=== PATIENT | male | born 1995 | race Caucasian/White ===

== ENCOUNTER 2023-01-15 01:47 | Emergency (ER) | payer MEDICAID, SELFPAY ==
[2023-01-15 01:48] VITALS: BP 147/87; PULSE 75; RESP 18; TEMP 36.7; O2SAT 99; BMI 21.7
--- NOTE | 2023-01-15 01:57 | CT_ITS ---
PROCEDURE INFORMATION: Exam: CT Abdomen And Pelvis With Contrast Exam date and time: 01/15/2023 2:17 AM Age: 27 years old Clinical indication: Abdominal pain; Patient HX: Patient stated right sided abd pain that started approx. 2 hours ago; Additional info: Rlq pain TECHNIQUE: Imaging protocol: Computed tomography of the abdomen and pelvis with contrast. Radiation optimization: All CT scans at this facility use at least one of these dose optimization techniques: automated exposure control; mA and/or kV adjustment per patient size (includes targeted exams where dose is matched to clinical indication); or iterative reconstruction. Contrast material: ISOVUE; Contrast volume: 75 ml; Contrast route: IV; REPORTING DATA: Count of CT and Cardiac NM exams in prior 12 months: This patient has received 0 known CTs and 0 known cardiac nuclear medicine studies in the 12 months prior to the current study. COMPARISON: No relevant prior studies available. FINDINGS: Lungs: There are left lower lobe pulmonary nodules measuring up to 3 mm. No follow-up imaging is warranted for a patient of this age. Liver: Normal. No mass. Gallbladder and bile ducts: Normal. No calcified stones. No ductal dilation. Pancreas: Normal. No ductal dilation. Spleen: Normal. No splenomegaly. Adrenal glands: Normal. No mass. Kidneys and ureters: Right periureteral edema. There is no obstructing ureteral calculus. Stomach and bowel: Unremarkable. No obstruction. No mucosal thickening. Appendix: Unremarkable appendix. Intraperitoneal space: Unremarkable. No free air. No significant fluid collection. Vasculature: Unremarkable. No abdominal aortic aneurysm. Lymph nodes: Unremarkable. No enlarged lymph nodes. Urinary bladder: Limited evaluation of the urinary bladder due to low urine volume. Reproductive: Unremarkable as visualized. Bones/joints: Unremarkable. No acute fracture. Soft tissues: Unremarkable. Other findings: Stigmata of old granulomatous disease. IMPRESSION: 1. Right periureteral edema. There is no obstructing ureteral calculus. This could be due to a recently passed ureteral calculus or ascending urinary tract infection. 2. Limited evaluation of the urinary bladder due to low urine volume. Please exclude infection clinically.
[2023-01-15 02:13] LABS: Basophils # 0.1 K/mm3 (0-0.2); Basophils % 0.6 % (0.1-2.0); Eosinophils # 0.2 K/mm3 (0.0-0.4); Eosinophils % 1.4 % (0.1-12.0); Hematocrit 44.6 % (42.0-52.0); Hemoglobin 14.8 g/dL (14.1-18.0); Lymphocytes # 2.8 K/mm3 (0.7-4.5); Lymphocytes % 24.6 % (10-50); Mean Corpuscular HGB Conc 33.2 g/dL (31.8-35.4); Mean Corpuscular Hemoglobin 31.3 pg (27.0-31.2); Mean Corpuscular Volume 94.2 fl (80-94); Mean Platelet Volume 7.6 fl (7.4-10.4); Monocytes # 0.7 K/mm3 (0.1-1.0); Neutrophils # 7.7 K/mm3 (1.8-7.8); Neutrophils % 67.4 % (37.0-80.0); Platelet Count 212 K/mm3 (142-424); Red Blood Count 4.74 M/mm3 (4.60-6.20); Red Cell Distribution Width 12.3 % (11.5-17.5); White Blood Count 11.4 K/mm3 (4.8-10.8)
[2023-01-15 02:15] LABS: Chloride 101 mmol/L (98-107); Potassium 3.5 mmoL/L (3.5-5.1); Sodium 138 mmol/L (136-145)
[2023-01-15 02:16] LABS: Microscopic, Urine URINE MICROSCOPIC (MICROSCOPIC)
[2023-01-15 02:17] LABS: Alanine Aminotransferase 24 U/L (12-78); Aspartate Amino Transferase 33 U/L (17-59); Blood Urea Nitrogen 18 mg/dl (9-20); Creatinine Clearance Estimated 127 mL/min (50-200); Estimated Glomerular Filt Rate 101 ml/min (>60); GFR (African American) 122 ML/MIN (>60)
--- NOTE | 2023-01-15 02:17 | PC.NURSE ---
patient gone to RAD at this time.
[2023-01-15 02:18] LABS: Albumin Level 4.7 g/dl (3.5-5.0); Albumin/Globulin Ratio 1.7 (1.1-1.8); Alkaline Phosphatase 98 U/L (38-126); Anion Gap 10.5 mEq/L (5-15); Bilirubin,Total 0.9 mg/dl (0.2-1.3); Calcium 9.4 mg/dl (8.4-10.2); Carbon Dioxide 30 mmol/L (22.0-30.0); Globulin 2.7 g/dL (1.3-3.2); Glucose 105 mg/dl (74-100); Total Protein,Serum 7.4 g/dl (6.3-8.2)
[2023-01-15 02:18] LABS: Appearance,Urine CLEAR (Clear); Bilirubin,Urine Negative (Negative); Blood, Urine 3+ (Negative); Color,Urine YELLOW (Yellow); Glucose,Urine (UA) Negative (Negative); Ketones,Urine Negative (Negative); Leukocyte Esterase,Urine Negative (Negative); Nitrate,Urine Negative (Negative); Protein,Urine TRACE (Negative); Specific Gravity, Urine 1.025 (1.005-1.030)
--- NOTE | 2023-01-15 02:25 | HMH.EDGENADL ---
Discharge Plan Disposition Patient Disposition: Home, Self-Care Condition: Good Referrals Follow up/Referrals: Yolie Durán [Primary Care Provider] - See instructions Activity Restrictions/Add. Instructions Additional Instructions/Restrictions: Please follow-up with your primary care provider. Please return to the emergency department if you develop any new or worsening symptoms or become concerned for your health. Please remain hydrated. Clinical Impressions Clinical Impression: Ureterolithiasis, Nausea & vomiting Instructions Patient Instructions: DI for Acute Abdominal Pain Discharge ED Provider: Santiago Drummond General Adult HPI General Chief complaint: Abdominal Pain Stated complaint: Lower abdominal pain Time Seen by Provider: 01/15/23 01:54 Mode of Arrival: Ambulatory Source of Information: Patient Limitations: No Limitations Description of Symptoms (Recalled from ER Triage Doc. by RN): Patient states he has right lower quadrant pain that started 2 hours ago accompanied by chills and vomiting. History of Present Illness HPI narrative: 27-year-old male reportedly previously healthy presents due to sudden onset right lower quadrant pain that awoke him from sleep. Shortly after the onset of pain patient had episode of vomiting. Nonbloody, nonbilious. Patient reports the pain is improved since onset but is still severe, approximately 5 out of 10. Patient reports nothing like this is happened before. Reports no prior abdominal surgeries. Reports no urinary symptoms. No testicular pain. Related Data Allergies Allergy/AdvReac Type Severity Reaction Status Date / Time No Known Allergies Allergy Verified 01/15/23 01:59 [facility] Disclaimer: The information contained in this section may have been updated after the patient was seen, as this information can be updated by other users. Social History Smoking Status: Current every day smoker alcohol intake: never current occupational status: other Travel in the last 8 weeks: None ROS Obtained: Yes All systems reviewed & no additional complaints except as documented Physical Exam General General appearance: alert and in no apparent distress Head Head exam: atraumatic and normocephalic Eye Eye exam: Present normal appearance, PERRL and EOMI ENT ENT exam: Present normal oropharynx and normal external ear exam Neck Neck exam: Present normal inspection and full ROM Chest Chest inspection: Present normal inspection and symmetric chest wall rise; Absent tenderness Respiratory Respiratory exam: Present normal lung sounds bilaterally; Absent respiratory distress Cardiovascular Cardiovascular exam: Present regular rate and normal rhythm Abdominal Exam Abdominal exam: Present soft and tenderness (Right lower quadrant tenderness); Absent distention or guarding Extremities Exam Extremities exam: Present normal inspection; Absent edema or joint swelling Back Exam Back exam: Present normal inspection; Absent tenderness, CVA tenderness (R) or CVA tenderness (L) Neurological Exam Neurological exam: Present alert and oriented X3; Absent motor sensory deficit Psychiatric Psychiatric exam: Present normal affect and normal mood Skin Skin exam: Present warm, dry and normal color Lymphatic Lymphatic Findings: no adenopathy Medical Decision Making Medical Records Medical records reviewed: Yes I reviewed the patient's medical records. [place] Inquiry Pt receiving controlled substance: No [place] was queried for this patient: No Vital Signs: 01/15/23 01:48 Temperature 98.0 F Temperature Source Oral Pulse Rate [Right Radial] 75 Respiratory Rate 18 Blood Pressure [Right Arm] 147/87 H Blood Pressure Mean [Right Arm] 107 Blood Pressure Source [Right Arm] Automatic Cuff Blood Pressure Position [Right Arm] Sitting 02 Sat by Pulse Oximetry 99 Oxygen Delivery Method Room Air Lab Data Lab results reviewed: Yes I reviewed the patient's lab results. Deandra
[2023-01-15 02:32] LABS: Squamous Epithelial Cell,Urine Occasional #/hpf (0-5)
--- NOTE | 2023-01-15 02:47 | PC.NURSE ---
patient back in room at this time.
--- NOTE | 2023-01-15 03:00 | PC.NURSE ---
Rounded on patient, patient voiced no concerns at this time.
[2023-01-15 03:11] VITALS: BP 134/78; PULSE 72; RESP 18; TEMP 36.6; O2SAT 99
== END 2023-01-15 03:16 | disposition home or self-care (01) ==
PROVIDERS: Emergency Provider Emergency Medicine; PCP Nurse Practitioner Family
DX: R10.31 Right lower quadrant pain (principal); R11.10 Vomiting, unspecified; F17.200 Nicotine dependence, unspecified, uncomplicated
CPT/HCPCS: 74177; 80053; 81001; 85025; 96360; 99285; Q9967

== ENCOUNTER 2023-03-22 23:11 | Emergency (ER) | payer MEDICAID, SELFPAY ==
--- NOTE | 2023-03-22 23:11 | ECG_ITS ---
APPROVED REPORT Exam: Resting ECG HR:79 bpm ECG Measurements Heart Rate 79 AXES KS 165 P 81 QRSd 91 QRS 75 QT 370 T 71 QTc 404 Conclusion SINUS RHYTHM NORMAL ECG UNCONFIRMED REPORT Electronically signed by : Willie Banegas MD 03/24/2023 17:13:00
[2023-03-22 23:12] VITALS: BP 143/74; PULSE 83; RESP 20; TEMP 36.7; O2SAT 99; BMI 21.2
--- NOTE | 2023-03-22 23:19 | HMH.EDGENADL ---
Discharge Plan Disposition Patient Disposition: Home, Self-Care Activity Restrictions/Add. Instructions Additional Instructions/Restrictions: Please return to the emergency department immediately if you feel worse in any way. Follow-up with your primary care doctor in about 3 to 4 days. Try to stop smoking. Your work-up today in the emergency department did not reveal any life-threatening or dangerous conditions. However, I cannot tell you what your symptoms are from. Therefore you should follow-up with your primary care doctor to undergo a more detailed work-up then as possible in the emergency department. Clinical Impressions Clinical Impression: Paresthesias, Anxiety Instructions Patient Instructions: DI for Neck Pain Discharge ED Provider: Gill Stanley Adult HPI General Chief complaint: Neck Pain/Injury Stated complaint: chest pain Time Seen by Provider: 03/22/23 23:14 Mode of Arrival: Ambulatory Source of Information: Patient Limitations: No Limitations Description of Symptoms (Recalled from ER Triage Doc. by RN): pt had ear infection 2 weeks ago and has been on antibiotics, pt complains of chest pain and left side neck pain and numbness tingling on left side of body History of Present Illness HPI narrative: The patient presents to the emergency department with a chief complaint of left sided upper extremity and lower extremity paresthesias for the last 16 hours. All this was preceded by loss of hearing in the left ear about 2 weeks ago. He was diagnosed with a cerumen impaction at that time. They were unable to remove the cerumen at the time. He was started on 2 different antibiotics for possible ear infection. He can now hear normally out of both ears. He is feeling somewhat anxious about his paresthesia and is worried about a stroke or heart attack. He smokes 1 pack a day. He denies any drug use. Related Data Allergies Allergy/AdvReac Type Severity Reaction Status Date / Time No Known Allergies Allergy Verified 01/15/23 01:59 [facility] Disclaimer: The information contained in this section may have been updated after the patient was seen, as this information can be updated by other users. Social History (Updated 01/15/23 @ 03:13 by Santiago Drummond MD) Smoking Status: Current every day smoker alcohol intake: never current occupational status: other Travel in the last 8 weeks: None ROS Obtained: Yes All systems reviewed & no additional complaints except as documented Physical Exam General General appearance: alert, in no apparent distress and anxious Head Head exam: atraumatic Eye Eye exam: Present normal appearance, PERRL and EOMI ENT ENT exam: Present normal exam and TM's normal bilaterally (There is some scarring of the left tympanic membrane. No evidence of acute infection or perforation.) Neck Neck exam: Present normal inspection, full ROM, trachea midline and other (No lymphadenopathy.); Absent tenderness, meningismus, lymphadenopathy or thyromegaly Chest Chest inspection: Present normal inspection and symmetric chest wall rise; Absent tenderness Respiratory Respiratory exam: Present normal lung sounds bilaterally; Absent respiratory distress or accessory muscle use Cardiovascular Cardiovascular exam: Present regular rate, normal rhythm and normal heart sounds Abdominal Exam Abdominal exam: Present soft and normal bowel sounds; Absent distention, tenderness, heel tap sign, Barrera's sign, Rovsing's sign, tenderness at McBurney's Point or mass Extremities Exam Extremities exam: Present normal inspection, full ROM and other (All 4 extremities are neurovascularly intact.); Absent tenderness, edema, joint swelling or calf tenderness Back Exam Back exam: Present normal inspection; Absent CVA tenderness (R) or CVA tenderness (L) Neurological Exam Neurological exam: Present alert, oriented X3, reflexes normal and other (NIH stroke scale is 0.); Absent motor sensory deficit Psychiatric
--- NOTE | 2023-03-22 23:24 | XR_ITS ---
PROCEDURE INFORMATION: Exam: XR Chest Exam date and time: 03/22/2023 11:46 PM Age: 27 years old Clinical indication: Other: Paresthesia TECHNIQUE: Imaging protocol: Radiologic exam of the chest. Views: 1 view. COMPARISON: CT ABDOMEN PELVIS W CON 01/15/2023 2:17 AM FINDINGS: Lungs: Unremarkable. No consolidation. Pleural spaces: Unremarkable. No pleural effusion. No pneumothorax. Heart/Mediastinum: Unremarkable. No cardiomegaly. Bones/joints: Unremarkable. IMPRESSION: No acute findings.
--- NOTE | 2023-03-22 23:29 | PC.NURSE ---
xray at bedside
[2023-03-22 23:30] VITALS: BP 127/64; PULSE 75; RESP 14; O2SAT 98
[2023-03-22 23:32] LABS: Chloride 104 mmol/L (98-107); Potassium 3.4 mmoL/L (3.5-5.1); Sodium 140 mmol/L (136-145)
[2023-03-22 23:33] LABS: Basophils # 0.1 K/mm3 (0-0.2); Basophils % 0.8 % (0.1-2.0); Eosinophils # 0.1 K/mm3 (0.0-0.4); Eosinophils % 1.2 % (0.1-12.0); Hematocrit 45.1 % (42.0-52.0); Hemoglobin 14.5 g/dL (14.1-18.0); Lymphocytes # 3.6 K/mm3 (0.7-4.5); Lymphocytes % 36.2 % (10-50); Mean Corpuscular HGB Conc 32.2 g/dL (31.8-35.4); Mean Corpuscular Hemoglobin 30.8 pg (27.0-31.2); Mean Corpuscular Volume 95.6 fl (80-94); Mean Platelet Volume 7.9 fl (7.4-10.4); Monocytes # 0.7 K/mm3 (0.1-1.0); Monocytes % 7.2 % (1.7-9.3); Neutrophils # 5.5 K/mm3 (1.8-7.8); Neutrophils % 54.6 % (37.0-80.0); Platelet Count 272 K/mm3 (142-424); Red Blood Count 4.71 M/mm3 (4.60-6.20); Red Cell Distribution Width 12.4 % (11.5-17.5)
[2023-03-22 23:34] LABS: Blood Urea Nitrogen 15 mg/dl (9-20); Creatinine Clearance Estimated 131 mL/min (50-200); Estimated Glomerular Filt Rate 101 ml/min (>60); GFR (African American) 122 ML/MIN (>60)
[2023-03-22 23:35] LABS: Alanine Aminotransferase 27 U/L (12-78); Albumin Level 4.5 g/dl (3.5-5.0); Albumin/Globulin Ratio 1.7 (1.1-1.8); Alkaline Phosphatase 76 U/L (38-126); Anion Gap 12.4 mEq/L (5-15); Aspartate Amino Transferase 37 U/L (17-59); Bilirubin,Total 0.8 mg/dl (0.2-1.3); Carbon Dioxide 27 mmol/L (22.0-30.0); Globulin 2.6 g/dL (1.3-3.2); Glucose 132 mg/dl (74-100); Total Protein,Serum 7.1 g/dl (6.3-8.2)
[2023-03-22 23:38] LABS: Activated Partial Thrombo Time 25.9 seconds (22.8-30.6); INR 1.05 (0.9-1.1); Prothrombin Time 11.3 seconds (10.1-12.5)
[2023-03-22 23:59] LABS: Troponin I < 0.01 ng/ml (0.00-0.034)
[2023-03-23] LABS: Magnesium 1.9 mg/dl (1.6-2.3)
--- NOTE | 2023-03-23 00:01 | PC.NURSE ---
in room talking with patient at this time.
[2023-03-23 00:11] VITALS: BP 120/69; PULSE 64; RESP 12; TEMP 36.6; O2SAT 97
== END 2023-03-23 00:12 | disposition home or self-care (01) ==
PROVIDERS: Emergency Provider Emergency Medicine
DX: R20.2 Paresthesia of skin (principal); F41.9 Anxiety disorder, unspecified; F17.200 Nicotine dependence, unspecified, uncomplicated; R07.9 Chest pain, unspecified; M54.2 Cervicalgia
CPT/HCPCS: 71045; 80053; 83735; 84484; 85025; 85610; 85730; 93005; 99285

== ENCOUNTER 2023-04-15 21:48 | Emergency (ER) | payer MEDICAID, SELFPAY ==
[2023-04-15 21:50] VITALS: BP 140/88; PULSE 73; RESP 14; TEMP 36.6; O2SAT 100; BMI 19.6
[2023-04-15 22:12] VITALS: BP 146/91; PULSE 73; O2SAT 100
[2023-04-15 22:15] VITALS: BP 142/83; PULSE 75; O2SAT 100
--- NOTE | 2023-04-15 22:17 | ECG_ITS ---
APPROVED REPORT Exam: Resting ECG HR:66 bpm ECG Measurements Heart Rate 66 AXES SC 166 P 74 QRSd 92 QRS 76 QT 392 T 71 QTc 405 Conclusion SINUS RHYTHM POSSIBLE RIGHT VENTRICULAR CONDUCTION DELAY [RSR (QR) IN V1/V2] BORDERLINE ECG UNCONFIRMED REPORT Electronically signed by : Willie Banegas MD 04/17/2023 21:29:30
[2023-04-15 22:21] LABS: Basophils # 0.1 K/mm3 (0-0.2); Basophils % 0.8 % (0.1-2.0); Eosinophils # 0.1 K/mm3 (0.0-0.4); Eosinophils % 1.6 % (0.1-12.0); Hemoglobin 15.3 g/dL (14.1-18.0); Lymphocytes # 2.7 K/mm3 (0.7-4.5); Lymphocytes % 32.1 % (10-50); Mean Corpuscular HGB Conc 35.5 g/dL (31.8-35.4); Mean Corpuscular Hemoglobin 33.5 pg (27.0-31.2); Mean Corpuscular Volume 94.3 fl (80-94); Mean Platelet Volume 7.8 fl (7.4-10.4); Monocytes # 0.5 K/mm3 (0.1-1.0); Monocytes % 5.8 % (1.7-9.3); Neutrophils % 59.6 % (37.0-80.0); Platelet Count 222 K/mm3 (142-424); Red Blood Count 4.56 M/mm3 (4.60-6.20); Red Cell Distribution Width 12.2 % (11.5-17.5); White Blood Count 8.5 K/mm3 (4.8-10.8)
[2023-04-15 22:25] LABS: Chloride 104 mmol/L (98-107); Sodium 139 mmol/L (136-145)
[2023-04-15 22:26] LABS: Potassium 3.3 mmoL/L (3.5-5.1)
[2023-04-15 22:28] LABS: Alanine Aminotransferase 24 U/L (12-78); Albumin/Globulin Ratio 1.9 (1.1-1.8); Alkaline Phosphatase 75 U/L (38-126); Anion Gap 10.3 mEq/L (5-15); Aspartate Amino Transferase 33 U/L (17-59); Bilirubin,Total 0.7 mg/dl (0.2-1.3); Blood Urea Nitrogen 21 mg/dl (9-20); Carbon Dioxide 28 mmol/L (22.0-30.0); Creatinine Clearance Estimated 114 mL/min (50-200); Estimated Glomerular Filt Rate 100 ml/min (>60); GFR (African American) 122 ML/MIN (>60); Globulin 2.6 g/dL (1.3-3.2); Total Protein,Serum 7.6 g/dl (6.3-8.2)
[2023-04-15 22:29] LABS: Glucose 109 mg/dl (74-100)
[2023-04-15 22:30] VITALS: BP 134/79; PULSE 70; O2SAT 99
[2023-04-15 22:41] LABS: Troponin I < 0.01 ng/ml (0.00-0.034)
[2023-04-15 22:45] VITALS: BP 151/92; PULSE 74; O2SAT 98
[2023-04-15 23:26] VITALS: BP 134/89; PULSE 55; RESP 18; TEMP 36.6; O2SAT 98
--- NOTE | 2023-04-15 23:29 | HMH.EDGENADL ---
Discharge Plan Disposition Patient Disposition: Home, Self-Care Prescriptions Prescriptions: New esomeprazole magnesium 20 mg capsule,delayed release(DR/EC) 20 mg PO DAILY 56 Days Qty: 56 1RF No Action fluoxetine 10 mg capsule 10 mg PO DAILY Patient Comments: TAKE 1 CAPSULE 1 TIME EACH DAY Referrals Follow up/Referrals: Yolie Durán [Primary Care Provider] - See instructions Activity Restrictions/Add. Instructions Additional Instructions/Restrictions: Take 40 mg (2 capsules) of acid medication daily. Call your family doctor to establish care for this visit to the emergency department and schedule follow-up within 48 hours to ensure improvement. If you have any worsening of your condition or any other concerning signs or symptoms, return to the emergency department or your primary care doctor for further evaluation. Avoid carbonated beverages, caffeine, alcohol, and ibuprofen/naproxen. Clinical Impressions Clinical Impression: Acid reflux Instructions Patient Instructions: DI for Acute Abdominal Pain Discharge ED Provider: Dipesh Goldsmith General Adult HPI General Chief complaint: Abdominal Pain Stated complaint: abd pain, back pain, feels like smething in throat Time Seen by Provider: 04/15/23 22:10 Mode of Arrival: Ambulatory Source of Information: Patient Limitations: No Limitations Description of Symptoms (Recalled from ER Triage Doc. by RN): pt c/o [facility], lt jaw pain and epigastric pain that started this morning. pt states has been having epiosdes for 4 weeks and was recently started on prozac for panic attacks by pcp. pt was seen at [facility] last week for the same thing. History of Present Illness HPI narrative: 28-year-old male with history of presumed anxiety following with primary care provider presenting with multiple complaints. Patient states for the past couple of months he has been having a globus sensation in his throat difficulty swallowing, intermittent chest and back pain, abdominal burning. Worse in the morning, better at night. Made worse with food intake. Patient states that today, he had Mountain Dew and Boo[employer] cup for breakfast and it was made worse by that. Denies vomiting, hematemesis, melena, hematochezia, fevers or chills, or any other concerns. No food impactions. Related Data Home Medications Medication Instructions Recorded Confirmed fluoxetine 10 mg capsule 10 mg PO DAILY panic 04/15/23 04/15/23 Previous Rx's Medication Instructions Recorded esomeprazole magnesium 20 mg 20 mg PO DAILY 8 weeks #56 caps 10/24/23 capsule,delayed release Allergies Allergy/AdvReac Type Severity Reaction Status Date / Time No Known Allergies Allergy Verified 01/15/23 01:59 [facility] Disclaimer: The information contained in this section may have been updated after the patient was seen, as this information can be updated by other users. Social History (Updated 01/15/23 @ 03:13 by Santiago Drummond MD) Smoking Status: Current every day smoker alcohol intake: never current occupational status: other Travel in the last 8 weeks: None ROS Obtained: Yes All systems reviewed & no additional complaints except as documented Physical Exam General General appearance: alert and in no apparent distress Head Head exam: atraumatic and normocephalic Eye Eye exam: Present normal appearance, PERRL and EOMI ENT ENT exam: Present mucous membranes moist Neck Neck exam: Present normal inspection, full ROM and trachea midline; Absent tenderness Respiratory Respiratory exam: Present normal lung sounds bilaterally; Absent respiratory distress, wheezes, stridor, accessory muscle use or prolonged expiratory phase Cardiovascular Cardiovascular exam: Present regular rate and normal rhythm Abdominal Exam Abdominal exam: Present soft; Absent distention, tenderness, guarding, rebound, rigidity or normal bowel sounds Extremities Exam Extremities exam: Absent edema Neur
== END 2023-04-15 23:39 | disposition home or self-care (01) ==
PROVIDERS: Emergency Provider Emergency Medicine; PCP Nurse Practitioner Family
DX: R10.9 Unspecified abdominal pain (principal); K21.9 Gastro-esophageal reflux disease without esophagitis
CPT/HCPCS: 80053; 84484; 85025; 93005; 96374; 99285

== ENCOUNTER 2023-04-27 17:13 | Emergency (ER) | payer MEDICAID, SELFPAY ==
[2023-04-27 17:14] VITALS: BP 140/84; PULSE 65; RESP 17; TEMP 36.4; O2SAT 97; BMI 20.3
--- NOTE | 2023-04-27 17:14 | ECG_ITS ---
APPROVED REPORT Exam: Resting ECG HR:77 bpm ECG Measurements Heart Rate 77 AXES DE 148 P 83 QRSd 94 QRS 78 QT 358 T 62 QTc 389 Conclusion SINUS RHYTHM NORMAL ECG UNCONFIRMED REPORT Electronically signed by : Willie Banegas MD 04/28/2023 17:49:46
--- NOTE | 2023-04-27 17:16 | HMH.EDGENADL ---
Discharge Plan Disposition Patient Disposition: Home, Self-Care Condition: Good Prescriptions Prescriptions: New NewFlora 10 billion cell capsule 10,000 mmu cells PO DAILY Qty: 30 0RF No Action fluoxetine 10 mg capsule 10 mg PO DAILY Patient Comments: TAKE 1 CAPSULE 1 TIME EACH DAY esomeprazole magnesium 20 mg capsule,delayed release(DR/EC) 20 mg PO DAILY 56 Days Qty: 56 1RF Referrals Follow up/Referrals: Provider,Referral, MD [Primary Care Provider] - See instructions Activity Restrictions/Add. Instructions Additional Instructions/Restrictions: As discussed, thankfully your labs that evaluated your thyroid levels, any evidence of stress on your heart, any evidence of kidney injury or other acute findings were reassuring today. I believe that you are still experiencing symptoms from your norovirus, this will likely take some time to improve. I do recommend that you get an endoscopy and colonoscopy. I have prescribed a probiotic. I would recommend he continue the esomeprazole 30 minutes to 1 hour before meals. Please return with any new or worsening symptoms. Clinical Impressions Clinical Impression: Diarrhea Discharge ED Provider: Thiago Arellano Adult HPI General Chief complaint: Chest Pain Stated complaint: chest pain Time Seen by Provider: 04/27/23 17:16 History of Present Illness HPI narrative: The patient presents with a chief complaint of abdominal pain for the last month, which has been radiating to the chest. The pain has been worsening, and the patient reports a weight loss of 25 pounds in the past month and a half. The patient has also been experiencing chest pain and pressure. The patient's history of present illness includes a recent CT scan at , which revealed a colon backed up with stool. The patient was advised to take Miralax and contact the healthcare provider if the pain worsened or if the medication was ineffective. The patient has been experiencing watery bowel movements without hard stools for several days and has been taking Miralax as recommended. Additionally, the patient reports pain in the shoulders, arms, and neck. The patient is currently taking Nexium as a regular medication. The patient has experienced episodes of nausea and vomiting, with the most recent episode occurring about a week and a half ago. The patient's symptoms have been worsening with eating, and the pain is radiating from the abdomen to the chest. The patient experiences lower abdominal pain only when using the bathroom. Related Data Home Medications Medication Instructions Recorded Confirmed fluoxetine 10 mg capsule 10 mg PO DAILY panic 04/15/23 04/15/23 Previous Rx's Medication Instructions Recorded esomeprazole magnesium 20 mg 20 mg PO DAILY 8 weeks #56 caps 04/15/23 capsule,delayed release Lactobacillus acidophilus 10 10,000 mmu cells PO DAILY #30 caps 04/27/23 billion cell capsule (NewFlora) Allergies Allergy/AdvReac Type Severity Reaction Status Date / Time No Known Allergies Allergy Verified 01/15/23 01:59 [facility] Disclaimer: The information contained in this section may have been updated after the patient was seen, as this information can be updated by other users. Social History (Updated 01/15/23 @ 03:13 by Santiago Drummond MD) Smoking Status: Current every day smoker alcohol intake: never current occupational status: other Travel in the last 8 weeks: None ROS Obtained: Yes Systems reviewed as appropriate & no additional complaints except as documented As per HPI Physical Exam General General appearance: alert, in no apparent distress and anxious Head Head exam: atraumatic and normocephalic Eye Eye exam: Present normal appearance Neck Neck exam: Present normal inspection Chest Chest inspection: Present normal inspection and symmetric chest wall rise Respiratory Respiratory exam: Present normal lung sounds bilaterally; Absent
[2023-04-27 17:30] VITALS: BP 140/84; PULSE 72; RESP 18; O2SAT 97
--- NOTE | 2023-04-27 17:30 | PC.NURSE ---
DR SOLOMON AT BEDSIDE
[2023-04-27 18:00] VITALS: BP 132/77; PULSE 68; RESP 20; O2SAT 97
[2023-04-27 18:06] LABS: Basophils % 0.3 % (0.1-2.0); Eosinophils # 0.1 K/mm3 (0.0-0.4); Eosinophils % 0.7 % (0.1-12.0); Hematocrit 43.5 % (42.0-52.0); Hemoglobin 15.3 g/dL (14.1-18.0); Lymphocytes # 1.5 K/mm3 (0.7-4.5); Mean Corpuscular HGB Conc 35.1 g/dL (31.8-35.4); Mean Corpuscular Hemoglobin 33.3 pg (27.0-31.2); Mean Corpuscular Volume 94.8 fl (80-94); Mean Platelet Volume 7.7 fl (7.4-10.4); Monocytes # 0.4 K/mm3 (0.1-1.0); Monocytes % 3.7 % (1.7-9.3); Neutrophils # 7.4 K/mm3 (1.8-7.8); Neutrophils % 79.2 % (37.0-80.0); Platelet Count 232 K/mm3 (142-424); Red Blood Count 4.59 M/mm3 (4.60-6.20); Red Cell Distribution Width 12.2 % (11.5-17.5); White Blood Count 9.4 K/mm3 (4.8-10.8)
[2023-04-27 18:08] LABS: Chloride 103 mmol/L (98-107)
[2023-04-27 18:09] LABS: Potassium 3.3 mmoL/L (3.5-5.1); Sodium 139 mmol/L (136-145)
[2023-04-27 18:11] LABS: Alanine Aminotransferase 28 U/L (12-78); Albumin Level 4.7 g/dl (3.5-5.0); Albumin/Globulin Ratio 1.8 (1.1-1.8); Alkaline Phosphatase 67 U/L (38-126); Anion Gap 11.3 mEq/L (5-15); Aspartate Amino Transferase 36 U/L (17-59); Bilirubin,Total 0.6 mg/dl (0.2-1.3); Blood Urea Nitrogen 21 mg/dl (9-20); Carbon Dioxide 28 mmol/L (22.0-30.0); Creatinine Clearance Estimated 132 mL/min (50-200); Estimated Glomerular Filt Rate 115 ml/min (>60); GFR (African American) 139 ML/MIN (>60); Globulin 2.6 g/dL (1.3-3.2); Glucose 122 mg/dl (74-100); Lipase 129 U/L (23-300); Total Protein,Serum 7.3 g/dl (6.3-8.2)
--- NOTE | 2023-04-27 18:26 | PC.NURSE ---
ROUNDED ON PT, NO NEEDS AT THIS TIME
[2023-04-27 18:28] LABS: Free T4 (Free Thyroxine) 0.89 ng/dl (0.78-2.19)
[2023-04-27 18:29] LABS: Microscopic, Urine URINE MICROSCOPIC (MICROSCOPIC)
[2023-04-27 18:30] VITALS: BP 138/76; PULSE 74; RESP 20; O2SAT 96
[2023-04-27 18:33] LABS: Appearance,Urine CLEAR (Clear); Bilirubin,Urine Negative (Negative); Blood, Urine TRACE-I (Negative); Color,Urine YELLOW (Yellow); Glucose,Urine (UA) Negative (Negative); Ketones,Urine Negative (Negative); Leukocyte Esterase,Urine Negative (Negative); Nitrate,Urine Negative (Negative); PH,Urine 6.5 (5.0-8.5); Protein,Urine Negative (Negative); Specific Gravity, Urine >= 1.030 (1.005-1.030); Urobilinogen,Urine 0.2 EU/dl (0.2)
[2023-04-27 18:33] LABS: Troponin I < 0.01 ng/ml (0.00-0.034)
[2023-04-27 18:47] LABS: RBC,Urine Occasional #/hpf (0-3)
[2023-04-27 19:25] VITALS: BP 137/80; PULSE 66; RESP 16; TEMP 36.8; O2SAT 97
== END 2023-04-27 19:26 | disposition home or self-care (01) ==
PROVIDERS: Emergency Provider Emergency Medicine
DX: R10.9 Unspecified abdominal pain (principal); R07.9 Chest pain, unspecified; R19.7 Diarrhea, unspecified; R11.2 Nausea with vomiting, unspecified; F17.210 Nicotine dependence, cigarettes, uncomplicated
CPT/HCPCS: 80053; 81001; 83690; 84439; 84484; 85025; 93005; 99283

== ENCOUNTER 2023-05-24 22:36 | Emergency (ER) | payer MEDICAID, SELFPAY ==
[2023-05-24 22:37] VITALS: BP 167/94; PULSE 98; RESP 16; TEMP 37; O2SAT 99; BMI 20.3
[2023-05-24 23:00] VITALS: BP 156/91
[2023-05-24 23:30] VITALS: BP 147/87
[2023-05-24 23:31] VITALS: BP 150/83
--- NOTE | 2023-05-24 23:35 | CT_ITS ---
PROCEDURE INFORMATION: Exam: CTA Neck With Contrast Exam date and time: 05/25/2023 12:00 AM Age: 28 years old Clinical indication: Pain; Headache; Additional info: Left face numbness TECHNIQUE: Imaging protocol: Computed tomographic angiography of the neck with contrast. Exam focused on the cervical segments of the vasculature. 3D rendering (Not supervised by radiologist): MIP and/or 3D reconstructed images were created by the technologist. Radiation optimization: All CT scans at this facility use at least one of these dose optimization techniques: automated exposure control; mA and/or kV adjustment per patient size (includes targeted exams where dose is matched to clinical indication); or iterative reconstruction. Contrast material: ISOVUE; Contrast volume: 100 ml; Contrast route: INTRAVENOUS (IV); REPORTING DATA: Count of CT and Cardiac NM exams in prior 12 months: This patient has received 2 known CTs and 0 known cardiac nuclear medicine studies in the 12 months prior to the current study. COMPARISON: CT ANGIO HEAD 05/25/2023 12:00 AM FINDINGS: Right common carotid artery: No stenosis. No dissection or occlusion. Right internal carotid artery: No stenosis of the extracranial segment. No dissection or occlusion. Right external carotid artery: No occlusion or stenosis of the origin. Left common carotid artery: No stenosis. No dissection or occlusion. Left internal carotid artery: No stenosis of the extracranial segment. No dissection or occlusion. Left external carotid artery: No occlusion or stenosis of the origin. Right vertebral artery: No stenosis. No dissection or occlusion. Left vertebral artery: No stenosis. No dissection or occlusion. Soft tissues: Normal. No significant soft tissue swelling. Bones/joints: No acute fracture. IMPRESSION: No stenosis or occlusion. REFERENCES: NASCET CRITERIA. The degree of stenosis in the cervical segment of the internal carotid artery is based on NASCET criteria. Normal is no stenosis. Mild is less than 50% stenosis. Moderate is 50-69% stenosis. Severe is 70% to 99% stenosis. Total occlusion is no detectable patent lumen.
--- NOTE | 2023-05-24 23:35 | CT_ITS ---
PROCEDURE INFORMATION: Exam: CT Head Without Contrast Exam date and time: 05/24/2023 11:52 PM Age: 28 years old Clinical indication: Weakness, facial; Additional info: Left face numbness TECHNIQUE: Imaging protocol: Computed tomography of the head without contrast. Radiation optimization: All CT scans at this facility use at least one of these dose optimization techniques: automated exposure control; mA and/or kV adjustment per patient size (includes targeted exams where dose is matched to clinical indication); or iterative reconstruction. REPORTING DATA: Count of CT and Cardiac NM exams in prior 12 months: This patient has received [address] and 0 known cardiac nuclear medicine studies in the 12 months prior to the current study. COMPARISON: No relevant prior studies available. FINDINGS: Brain: Normal. No hemorrhage. Unremarkable white matter. No mass effect. Cerebral ventricles: No ventriculomegaly. Paranasal sinuses: Visualized sinuses are unremarkable. No fluid levels. Mastoid air cells: Visualized mastoid air cells are well aerated. Bones/joints: Mucosal thickening is noted in the bilateral maxillary, right sphenoid and bilateral ethmoid sinuses. Soft tissues: Unremarkable. IMPRESSION: 1. No acute intracranial disease or hemorrhage. 2. No obvious acute infarct. Please note if the patient's symptoms do not improve, or worsen, consider MRI with diffusion imaging. 3. Chronic paranasal sinus disease
--- NOTE | 2023-05-24 23:35 | CT_ITS ---
PROCEDURE INFORMATION: Exam: CTA Head With Contrast, Arteriography Exam date and time: 05/25/2023 12:00 AM Age: 28 years old Clinical indication: Pain; Headache; Additional info: Left face numbness TECHNIQUE: Imaging protocol: Computed tomographic angiography of the head with contrast. Exam focused on the arteries. 3D rendering (Not supervised by radiologist): MIP and/or 3D reconstructed images were created by the technologist. Radiation optimization: All CT scans at this facility use at least one of these dose optimization techniques: automated exposure control; mA and/or kV adjustment per patient size (includes targeted exams where dose is matched to clinical indication); or iterative reconstruction. Contrast material: ISOVUE; Contrast volume: 100 ml; Contrast route: INTRAVENOUS (IV); REPORTING DATA: Count of CT and Cardiac NM exams in prior 12 months: This patient has received 2 known CTs and 0 known cardiac nuclear medicine studies in the 12 months prior to the current study. COMPARISON: CT HEAD/BRAIN WO CON 05/24/2023 11:52 PM FINDINGS: ANTERIOR CIRCULATION: Right internal carotid artery: Intracranial segment is patent with no significant stenosis. No aneurysm. Right middle cerebral artery: No occlusion or significant stenosis. No aneurysm. Right anterior cerebral artery: No occlusion or significant stenosis. No aneurysm. Left internal carotid artery: Intracranial segment is patent with no significant stenosis. No aneurysm. Left middle cerebral artery: No occlusion or significant stenosis. No aneurysm. Left anterior cerebral artery: No occlusion or significant stenosis. No aneurysm. POSTERIOR CIRCULATION: Right vertebral artery: No occlusion or significant stenosis. No aneurysm. Left vertebral artery: No occlusion or significant stenosis. No aneurysm. Basilar artery: No occlusion or significant stenosis. No aneurysm. Right posterior cerebral artery: No occlusion or significant stenosis. No aneurysm. Left posterior cerebral artery: No occlusion or significant stenosis. No aneurysm. Brain: No definite mass, mass effect, or midline shift. Cerebral ventricles: No ventriculomegaly. Bones/joints: Unremarkable. No acute fracture. Soft tissues: Unremarkable. IMPRESSION: No large vessel stenosis or occlusion.
--- NOTE | 2023-05-24 23:42 | ECG_ITS ---
APPROVED REPORT Exam: Resting ECG HR:87 bpm ECG Measurements Heart Rate 87 AXES IN 154 P 76 QRSd 90 QRS 70 QT 367 T 52 QTc 412 Conclusion SINUS RHYTHM NORMAL ECG UNCONFIRMED REPORT Electronically signed by : Willie Banegas MD 05/26/2023 17:40:33
--- NOTE | 2023-05-24 23:50 | PC.NURSE ---
pt to radiology
[2023-05-24 23:52] LABS: Anion Gap 11.3 mEq/L (5-15); Blood Urea Nitrogen 17 mg/dl (9-20); Calcium 8.6 mg/dl (8.4-10.2); Carbon Dioxide 27 mmol/L (22.0-30.0); Chloride 102 mmol/L (98-107); Creatinine Clearance Estimated 118 mL/min (50-200); Estimated Glomerular Filt Rate 100 ml/min (>60); GFR (African American) 122 ML/MIN (>60); Glucose 105 mg/dl (74-100); Potassium 3.3 mmoL/L (3.5-5.1); Sodium 137 mmol/L (136-145)
[2023-05-24 23:53] LABS: Basophils # 0.1 K/mm3 (0-0.2); Basophils % 0.7 % (0.1-2.0); Eosinophils # 0.1 K/mm3 (0.0-0.4); Eosinophils % 0.9 % (0.1-12.0); Hematocrit 44.9 % (42.0-52.0); Lymphocytes # 1.5 K/mm3 (0.7-4.5); Lymphocytes % 23.6 % (10-50); Mean Corpuscular HGB Conc 33.5 g/dL (31.8-35.4); Mean Corpuscular Hemoglobin 31.3 pg (27.0-31.2); Mean Corpuscular Volume 93.6 fl (80-94); Mean Platelet Volume 7.7 fl (7.4-10.4); Monocytes # 0.7 K/mm3 (0.1-1.0); Monocytes % 10.5 % (1.7-9.3); Neutrophils # 4.1 K/mm3 (1.8-7.8); Neutrophils % 64.2 % (37.0-80.0); Platelet Count 200 K/mm3 (142-424); Red Blood Count 4.79 M/mm3 (4.60-6.20); Red Cell Distribution Width 12.1 % (11.5-17.5); White Blood Count 6.3 K/mm3 (4.8-10.8)
--- NOTE | 2023-05-24 23:54 | HMH.EDGENADL ---
Discharge Plan Disposition Patient Disposition: Home, Self-Care Condition: Good Prescriptions Prescriptions: No Action fluoxetine 10 mg capsule 10 mg PO DAILY Patient Comments: TAKE 1 CAPSULE 1 TIME EACH DAY esomeprazole magnesium 20 mg capsule,delayed release(DR/EC) 20 mg PO DAILY 56 Days Qty: 56 1RF NewFlora 10 billion cell capsule 10,000 mmu cells PO DAILY Qty: 30 0RF Referrals Follow up/Referrals: Yolie Durán [Primary Care Provider] - See instructions Activity Restrictions/Add. Instructions Additional Instructions/Restrictions: Follow up with PCP. Clinical Impressions Clinical Impression: Tingling, Acute neck pain Instructions Patient Instructions: DI for Neck Pain Discharge ED Provider: Yahaira Barrera General Adult HPI General Chief complaint: Neuro Symptoms/Deficit Stated complaint: facial numbness Time Seen by Provider: 05/24/23 23:16 Mode of Arrival: Ambulatory Source of Information: Patient Limitations: No Limitations Description of Symptoms (Recalled from ER Triage Doc. by RN): pt reports 3 weeks of left side of face numbness off and on, pt reports left side of neck sore, denies injury History of Present Illness HPI narrative: Patient is a 28-year-old male with previous medical history of no significant medical problems presenting with left face paresthesia. Left face tingling began 3 weeks ago and was initially intermittent but for the past 3 days has been almost constant. He has also noticed left sided neck pain over the same time. He presented to his PCP about this who recommended that he get a massage as this was concerning for left neck muscle impingement but he had minimal improvement from the massage. For this reason he began to be concerned that it could be a stroke or another emergent cause so presented to the emergency department. No extremity weakness or loss of sensation. Related Data Home Medications Medication Instructions Recorded Confirmed fluoxetine 10 mg capsule 10 mg PO DAILY panic 04/15/23 04/15/23 Previous Rx's Medication Instructions Recorded esomeprazole magnesium 20 mg 20 mg PO DAILY 8 weeks #56 caps 04/15/23 capsule,delayed release Lactobacillus acidophilus 10 10,000 mmu cells PO DAILY #30 caps 04/27/23 billion cell capsule (NewFlora) Allergies Allergy/AdvReac Type Severity Reaction Status Date / Time No Known Allergies Allergy Verified 01/15/23 01:59 [facility] Disclaimer: The information contained in this section may have been updated after the patient was seen, as this information can be updated by other users. Social History Smoking Status: Current every day smoker alcohol intake: never current occupational status: other Travel in the last 8 weeks: None ROS Obtained: Yes All systems reviewed & no additional complaints except as documented Physical Exam General General appearance: alert and in no apparent distress Head Head exam: atraumatic, normocephalic and normal inspection Eye Eye exam: Present normal appearance, PERRL and EOMI ENT ENT exam: Present normal exam, normal oropharynx, mucous membranes moist, TM's normal bilaterally and normal external ear exam Neck Neck exam: Present normal inspection, full ROM, trachea midline and other (Mild tenderness to palpation of the left cervical paraspinal muscles); Absent meningismus or lymphadenopathy Chest Chest inspection: Present normal inspection and symmetric chest wall rise; Absent tenderness Respiratory Respiratory exam: Present normal lung sounds bilaterally; Absent respiratory distress Cardiovascular Cardiovascular exam: Present regular rate and normal rhythm; Absent JVD Abdominal Exam Abdominal exam: Present soft and normal bowel sounds; Absent distention, tenderness or guarding Extremities Exam Extremities exam: Present normal inspection, full ROM and normal capillary refill; Absent
[2023-05-24 23:55] LABS: Prothrombin Time 11.8 seconds (10.1-12.5)
--- NOTE | 2023-05-25 00:04 | PC.NURSE ---
PT BACK FROM RADIOLOGY
--- NOTE | 2023-05-25 00:07 | PC.NURSE ---
Pt back from CT
[2023-05-25 03:27] VITALS: BP 105/62; PULSE 68; RESP 16; TEMP 36.8; O2SAT 98
== END 2023-05-25 03:29 | disposition home or self-care (01) ==
PROVIDERS: Emergency Provider Emergency Medicine; PCP Nurse Practitioner Family
DX: M54.2 Cervicalgia (principal); R20.2 Paresthesia of skin; F17.200 Nicotine dependence, unspecified, uncomplicated
CPT/HCPCS: 70450; 70496; 70498; 80048; 85025; 85610; 85730; 93005; 96374; 96375; 99285; Q9967

== ENCOUNTER → 2023-05-30 13:40 | Outpatient (CLI) | payer MEDICAID, SELFPAY ==
--- NOTE | 2023-05-30 13:57 | CT_ITS ---
FINAL REPORT CLINICAL HISTORY: lump in chest, right sternal border FINDINGS: Axial CT images of the chest were obtained without and with contrast. Coronal and sagittal reformatted images were also obtained. This study was performed with techniques to keep radiation doses as low as reasonably achievable, (ALARA). Individualized dose reduction techniques using automated exposure control or adjustment of mA and/or KV according to the patient's size were employed. There is no evidence of mediastinal or hilar mass or adenopathy. No axillary mass or adenopathy is identified. On lung window images, no pulmonary mass or dominant pulmonary nodule is identified. No localized pulmonary inflammatory process is identified. No abnormal enhancement is identified. No significant abnormality is noted at the site of the marker on the right sternal border. Limited images of the upper abdomen reveal no mass or localized inflammatory process. IMPRESSION: Unremarkable CT of the chest with and without contrast. Reviewed, Interpreted and Dictated by Edinson Renee III, MD Transcribed by Karen Mackey Authenticated and [facility]
[2023-05-30 14:35] LABS: Basophils % 0.3 % (0.1-2.0); Eosinophils # 0.1 K/mm3 (0.0-0.4); Eosinophils % 0.8 % (0.1-12.0); Hematocrit 44.7 % (42.0-52.0); Hemoglobin 15.3 g/dL (14.1-18.0); Lymphocytes # 1.8 K/mm3 (0.7-4.5); Mean Corpuscular HGB Conc 34.3 g/dL (31.8-35.4); Mean Corpuscular Hemoglobin 31.9 pg (27.0-31.2); Mean Platelet Volume 7.9 fl (7.4-10.4); Monocytes # 0.3 K/mm3 (0.1-1.0); Monocytes % 4.6 % (1.7-9.3); Neutrophils # 3.8 K/mm3 (1.8-7.8); Neutrophils % 64.4 % (37.0-80.0); Platelet Count 211 K/mm3 (142-424); Red Blood Count 4.81 M/mm3 (4.60-6.20); Red Cell Distribution Width 12.2 % (11.5-17.5); White Blood Count 5.9 K/mm3 (4.8-10.8)
[2023-05-31 08:34] LABS: HBsAg Screen Negative (Negative); HCV Ab Non Reactive (Non Reactive); HIV Screen 4th Generation wRfx Non Reactive (Non Reactive); Hep A Ab, IGM Negative (Negative); Hep B Core Ab, IgM Negative (Negative)
== END ==
PROVIDERS: PCP Nurse Practitioner Family; Visit Provider Nurse Practitioner Family
DX: R22.2 Localized swelling, mass and lump, trunk; R63.4 Abnormal weight loss; Z68.21 Body mass index [BMI] 21.0-21.9, adult
CPT/HCPCS: 36415; 71270; 80074; 85025; 86703; G0432; Q9967

== ENCOUNTER 2023-06-01 18:55 | Emergency (ER) | payer MEDICAID, SELFPAY ==
[2023-06-01 18:56] VITALS: BP 160/95; PULSE 82; RESP 18; TEMP 36.6; O2SAT 100; BMI 20.3
--- NOTE | 2023-06-01 18:59 | HMH.EDGENADL ---
Discharge Plan Disposition Patient Disposition: Home, Self-Care Condition: Good Prescriptions Prescriptions: No Action esomeprazole magnesium [Nexium] 20 mg capsule,delayed release(DR/EC) 20 mg PO DAILY Qty: 60 2RF Referrals Follow up/Referrals: Lianna Diaz APRN [Primary Care Provider] - See instructions Activity Restrictions/Add. Instructions Additional Instructions/Restrictions: Please follow-up with your primary care provider. Please return to the emergency department if you develop any new or worsening symptoms or become concerned for your health. The labs and imaging that I am able to visualized are all normal. I would recommend getting a upper GI or a swallowing study to further assess your swallowing difficulties. Consider discussing eosinophilic esophagitis with your GI doctor. Clinical Impressions Clinical Impression: Globus sensation, Difficulty swallowing Discharge ED Provider: Santiago Drummond Adult HPI General Chief complaint: Recheck/Abnormal Lab/Rx Stated complaint: soa, trouble swallowing Time Seen by Provider: 06/01/23 18:59 History of Present Illness HPI narrative: 20-year-old male presents with multiple complaints. Primary issue is that he is having globus sensation. He also has a knot on his anterior superior chest wall. Reports that he is having some difficulty swallowing but is able to tolerate his secretions. Reports that he feels like he is not dehydrated. He reports that he has had recent unintentional weight loss. His symptoms are being worked up by PCP and by GI on an outpatient basis. This includes recent CT chest with without contrast, recent CTA head neck, recent endoscopy with GI. Related Data Previous Rx's Medication Instructions Recorded esomeprazole magnesium 20 mg 20 mg PO DAILY #60 caps 05/26/23 capsule,delayed release (Nexium) Allergies Allergy/AdvReac Type Severity Reaction Status Date / Time No Known Allergies Allergy Verified 05/26/23 11:17 [facility] Disclaimer: The information contained in this section may have been updated after the patient was seen, as this information can be updated by other users. Medical History No active medical problems No significant family history Surgical History History of colonoscopy History of esophagogastroduodenoscopy (EGD) History of surgery on left wrist History of surgery on right wrist Social History Smoking Status: Current every day smoker second hand exposure: No alcohol intake: former substance use type: denies use current occupational status: employed Travel in the last 8 weeks: None household members: spouse and family housing: house marital status: ROS Obtained: Yes All systems reviewed & no additional complaints except as documented Physical Exam General General appearance: alert and in no apparent distress Head Head exam: atraumatic and normocephalic Eye Eye exam: Present normal appearance, PERRL and EOMI ENT ENT exam: Present normal oropharynx and normal external ear exam Neck Neck exam: Present normal inspection and full ROM Chest Chest inspection: Present symmetric chest wall rise and other (Subtle asymmetry with mild swelling of the right superior chest wall inferior to the clavicle. No erythema or evidence of infection. Soft. No supraclavicular axillary or cervical lymphadenopathy noted. Oropharynx appears normal.); Absent tenderness Respiratory Respiratory exam: Present normal lung sounds bilaterally; Absent respiratory distress Cardiovascular Cardiovascular exam: Present regular rate and normal rhythm Abdominal Exam Abdominal exam: Present soft; Absent distention, tenderness or guarding Extremities Exam Extremities exam: Present normal inspection; Absent edema or joint swelling Back Exam
[2023-06-01 19:03] VITALS: BP 160/95; PULSE 84; O2SAT 100
--- NOTE | 2023-06-01 19:31 | PC.NURSE ---
in room talking with patient at this time.
[2023-06-01 19:52] VITALS: BP 140/79; PULSE 81; RESP 16; O2SAT 99
[2023-06-01 20:29] VITALS: BP 136/85; PULSE 66; RESP 16; TEMP 36.6; O2SAT 98
== END 2023-06-01 20:31 | disposition home or self-care (01) ==
PROVIDERS: Emergency Provider Emergency Medicine; PCP Nurse Practitioner Family
DX: R13.10 Dysphagia, unspecified (principal); F17.200 Nicotine dependence, unspecified, uncomplicated
CPT/HCPCS: 99284

== ENCOUNTER 2023-07-01 07:22 | Outpatient (CLI) | payer MEDICAID, SELFPAY ==
--- NOTE | 2023-07-01 07:27 | MR_ITS ---
FINAL REPORT CLINICAL HISTORY: intermittent facial paresthesias. FINDINGS: Multiplanar MR imaging of the brain was performed without and with contrast. There is no evidence of intracranial hemorrhage or mass. No abnormal extra-axial fluid collection is seen. The ventricular size is within normal limits. There is no evidence of shift of the midline structures. The posterior fossa and brainstem have an unremarkable appearance. No area of abnormal restricted diffusion is identified. No abnormal contrast enhancement is seen. Normal major vessel vascular flow voids are noted. There is a mucosal thickening in multiple sinuses consistent with sinusitis. IMPRESSION: No acute intracranial abnormality identified. Reviewed, Interpreted and Dictated by Edinson Renee III, MD Transcribed by Patrice Sands Authenticated and [facility]
[2023-07-01] MEDS: GADOTERIDOL INJ 17ML SYRINGE 14 ML IV (08:10)
[2023-07-01] MEDS: SODIUM CHLORIDE 0.9% 10ML SYR (RAD ONLY) 10 ML IV (08:10)
== END 2023-07-01 23:59 ==
LOC: RAD 07:23
PROVIDERS: PCP Family Medicine; Visit Provider Family Medicine
DX: R20.2 Paresthesia of skin (principal); R59.1 Generalized enlarged lymph nodes
CPT/HCPCS: 70553; A9576

== ENCOUNTER 2023-09-03 21:04 | Outpatient (CLI) | payer MEDICAID, SELFPAY ==
[2023-09-03 18:08] LABS: Basophils % 0.7 % (0.1-2.0); Eosinophils # 0.1 K/mm3 (0.0-0.4); Eosinophils % 1.8 % (0.1-12.0); Hematocrit 47.4 % (42.0-52.0); Hemoglobin 15.4 g/dL (14.1-18.0); Lymphocytes # 1.5 K/mm3 (0.7-4.5); Lymphocytes % 22.6 % (10-50); Mean Corpuscular HGB Conc 32.4 g/dL (31.8-35.4); Mean Corpuscular Hemoglobin 32.3 pg (27.0-31.2); Mean Corpuscular Volume 99.8 fl (80-94); Mean Platelet Volume 9.1 fl (7.4-10.4); Monocytes # 0.5 K/mm3 (0.1-1.0); Monocytes % 7.2 % (1.7-9.3); Neutrophils # 4.4 K/mm3 (1.8-7.8); Neutrophils % 67.7 % (37.0-80.0); Platelet Count 211 K/mm3 (142-424); Red Blood Count 4.76 M/mm3 (4.60-6.20); Red Cell Distribution Width 12.8 % (11.5-17.5); White Blood Count 6.6 K/mm3 (4.8-10.8)
[2023-09-03 18:39] LABS: Erythrocyte Sedimentation Rate 3 mm/hr (0-15)
[2023-09-03 19:48] LABS: Alanine Aminotransferase 23 U/L (12-78); Albumin Level 4.8 g/dl (3.5-5.0); Albumin/Globulin Ratio 2.3 (1.1-1.8); Alkaline Phosphatase 77 U/L (38-126); Anion Gap 18.6 mEq/L (5-15); Aspartate Amino Transferase 33 U/L (17-59); Bilirubin,Total 0.9 mg/dl (0.2-1.3); Blood Urea Nitrogen 18 mg/dl (9-20); Calcium 9.6 mg/dl (8.4-10.2); Carbon Dioxide 21 mmol/L (22.0-30.0); Chloride 107 mmol/L (98-107); Estimated Glomerular Filt Rate 100 ml/min (>60); GFR (African American) 122 ML/MIN (>60); Globulin 2.1 g/dL (1.3-3.2); Glucose 54 mg/dl (74-100); Potassium 4.6 mmoL/L (3.5-5.1); Sodium 142 mmol/L (136-145); Total Protein,Serum 6.9 g/dl (6.3-8.2)
[2023-09-03 19:57] LABS: C-Reactive Protein < 0.3 mg/L (0-4)
[2023-09-03 20:06] LABS: T4 (Thyroxine) 5.2 ug/dl (5.53-11.0); Triiodothryronine (T3) Uptake 33 % (23.5-40.5)
[2023-09-03 20:20] LABS: Thyroid Stimulating Hormone 0.37 uIU/mL (0.465-4.68)
[2023-09-03 21:12] LABS: Iron 130 ug/dL (49-181)
[2023-09-03 21:21] LABS: Total Iron Binding Capacity 312 ug/dL (261-462)
[2023-09-03 22:56] LABS: Vitamin B12 317 pg/mL (239-931)
[2023-09-03 23:08] LABS: 25-OH Vitamin D, Total 45.5 ng/mL (30-100)
[2023-09-04 15:10] LABS: Testosterone,Total 519 ng/dL (264-916)
[2023-09-08 09:49] LABS: Antinuclear Antibodies (ANA) Negative
== END 2023-09-03 23:59 ==
LOC: LAB.DROPOF 21:04
PROVIDERS: PCP Nurse Practitioner Family; Visit Provider Nurse Practitioner Family
DX: R53.83 Other fatigue (principal); R13.10 Dysphagia, unspecified; F41.9 Anxiety disorder, unspecified; R20.2 Paresthesia of skin; R94.6 Abnormal results of thyroid function studies
CPT/HCPCS: 80053; 82306; 82607; 83540; 83550; 84403; 84436; 84439; 84443; 84479; 85025; 85651; 86038; 86140; 86225; 86235

== ENCOUNTER 2023-09-09 15:29 | Outpatient (CLI) | payer MEDICAID, SELFPAY ==
--- NOTE | 2023-09-09 15:29 | US_ITS ---
FINAL REPORT CLINICAL HISTORY: abnormal thyroid labs COMPARISON: None FINDINGS: THYROID ULTRASOUND: The right lobe of the thyroid gland measures 5.2 x 1.6 x 1.8 cm in size. There is a single nodule present, which measures 5 x 4 x 4 mm in size, solid, hypoechoic, a TI-RADS category 4 nodule. The remainder of the right thyroid lobe is unremarkable. The left lobe of the thyroid gland measures 4.6 x 1.2 x 1.5 cm in size. There is no evidence of focal mass or nodule in the left lobe of the thyroid. The isthmus of the thyroid measures 3 mm in thickness. IMPRESSION: Single nodule as described, a TI-RADS category 4 nodule. Due to size and appearance of this nodule, TI-RADS criteria do not require any follow-up at this time. Reviewed, Interpreted and Dictated by Edinson Renee III, MD Transcribed by Karen Mackey Authenticated and [facility]
== END 2023-09-09 23:59 ==
LOC: RAD 15:29
PROVIDERS: PCP Nurse Practitioner Family; Visit Provider Nurse Practitioner Family
DX: E04.1 Nontoxic single thyroid nodule (principal); R79.89 Other specified abnormal findings of blood chemistry
CPT/HCPCS: 76536

== ENCOUNTER 2023-09-11 08:46 | Emergency (ER) | payer MEDICAID, SELFPAY ==
[2023-09-11 08:55] VITALS: BP 143/87; PULSE 92; RESP 18; TEMP 36.4; O2SAT 100; BMI 23.6
--- NOTE | 2023-09-11 08:59 | PC.NURSE ---
pt reports throbbing on the left side of his head that comes and goes. reports hypertension and thyroid issues. MD @ bedside
--- NOTE | 2023-09-11 09:23 | HMH.EDGENADL ---
Discharge Plan Disposition Patient Disposition: Home, Self-Care Prescriptions Prescriptions: No Action esomeprazole magnesium 40 mg capsule,delayed release(DR/EC) 40 mg PO DAILY Patient Comments: TAKE 1 CAPSULE 1 TIME EACH DAY 30 TO 60 MINUTES BEFORE BREAKFAST. DO NOT OPEN CAPSULE. Referrals Follow up/Referrals: Lianna Diaz APRN [Primary Care Provider] - See instructions Activity Restrictions/Add. Instructions Additional Instructions/Restrictions: Follow-up with your family doctor and ENT regarding this visit to the emergency department. On review, your thyroid-stimulating hormone (TSH) was low at 0.37 and your thyroid hormone (T4) was low at 0.7. Testosterone levels were normal. Thyroid ultrasound without concerning nodule. Discuss with your family doctor monitoring for need for thyroid replacement given your symptoms of fatigue and lightheadedness. Also discuss the possibility of seeing endocrinology for further workup of your fatigue and symptoms. Clinical Impressions Clinical Impression: Fatigue, Light headedness Discharge ED Provider: Dipesh Goldsmith General Adult HPI General Chief complaint: Headache Stated complaint: head pressure, high BP, fatigue Time Seen by Provider: 09/11/23 08:50 Mode of Arrival: Ambulatory Source of Information: Patient Limitations: No Limitations Description of Symptoms (Recalled from ER Triage Doc. by RN): headache,thyroid issues, left sided tingling History of Present Illness HPI narrative: 28-year-old male with history of anxiety, chronic fatigue presenting with multiple complaints. Patient states that he has had fatigue, a loopy feeling in my head, and left-sided facial paresthesias on and off for the past few months. States that he has been started on multiple antidepressant medications with his family doctor, but has not taken them for more than a couple days because they make him feel crazy in the head, without using his symptoms. He states that over the past few days, he has been getting progressively tired. Had recent CT head, MRI head, thyroid ultrasound, blood work done for the symptoms. Has not received any of the results, came to the emergency department for further evaluation, reassurance, and further concern. Please note that above description of symptoms, in this electronic medical record under categorization of recalled from ER triage doctor by RN are reflective of an initial nursing assessment, however, is not reflective of my full history and physical exam that was personally taken and clarified. Consequentially, this preceding description of symptoms, which may include the patient's categorized chief complaint in the EMR, do not reflect my personal clinical impression, and the ultimate description of history of present illness and patient stated complaints should be deferred to this section of the note. Unless stated otherwise or congruent with this section of the note, additional signs, symptoms, or incongruence should be interpreted as inaccurate with my clinical impression. Related Data Home Medications Medication Instructions Recorded Confirmed esomeprazole magnesium 40 mg 40 mg PO DAILY 09/03/23 09/03/23 capsule,delayed release Allergies Allergy/AdvReac Type Severity Reaction Status Date / Time No Known Allergies Allergy Verified 09/03/23 09:46 [facility] Disclaimer: The information contained in this section may have been updated after the patient was seen, as this information can be updated by other users. Medical History No significant family history No active medical problems Surgical History History of colonoscopy History of esophagogastroduodenoscopy (EGD) History of surgery on right wrist History of surgery on left wrist Family History Grandmother Heart attack Grandfather Cancer Social History Smoking Status: Never smoker second hand exposure: No alcohol intake: former substance use type: denies use current occupational status: employed Travel in the last 8 weeks: None household members: spouse and family housing: house marital status: ROS Obtained: Yes All systems reviewed & no additional complaints except as documented Physical Exam General General appearance: alert and in no apparent distress Head Head exam: atraumatic and normocephalic Eye Eye exam: Present normal appearance, PERRL and EOMI ENT ENT exam: Present mucous membranes moist Neck Neck exam: Present normal inspection, full ROM and trachea midline Respiratory Respiratory exam: Absent respiratory distress, wheezes, stridor, accessory muscle use or prolonged expiratory phase Cardiovascular Cardiovascular exam: Present normal rhythm Abdominal Exam Abdominal exam: Present soft; Absent distention, tenderness, guarding, rebound or rigidity Extremities Exam Extremities exam: Absent edema Neurological Exam Neurological exam: Present alert, oriented X3, CN II-XII intact and normal gait; Absent motor sensory deficit Skin Skin exam: Present warm and dry; Absent diaphoresis or erythema Medical Decision Making Medical Records Medical records reviewed: Yes I reviewed the patient's medical records. [place] Inquiry Pt receiving controlled substance: No Kay[place] was queried for this patient: No Vital Signs: 09/11/23 08:55 09/11/23 09:27 Temperature 97.5 F L 97.3 F L Temperature Source Oral Oral Pulse Rate 78 Pulse Rate [Right Radial] 92 H Respiratory Rate 18 18 Blood Pressure 143/87 H Blood Pressure [Right Arm] 143/87 H Blood Pressure Mean [Right Arm] 105 02 Sat by Pulse Oximetry 100 Oxygen Delivery Method Room Air Room Air Medical Decision Narrative: 28-year-old male with history of anxiety, chronic fatigue presenting with multiple complaints. Patient states that he has had fatigue, a loopy feeling in my head, and left-sided facial paresthesias on and off for the past few months. States that he has been started on multiple antidepressant medications with his family doctor, but has not taken them for more than a couple days because they make him feel crazy in the head, without using his symptoms. He states that over the past few days, he has been getting progressively tired. Had recent CT head, MRI head, thyroid ultrasound, blood work done for the symptoms. Has not received any of the results, came to the emergency department for further evaluation, reassurance, and further concern. History was obtained via conversation with patient and chart review. On arrival, patient hemodynamically stable, alert, oriented x4, appropriate, GCS 15, moving all extremities spontaneously, pupils equal and reactive to light. Full physical exam performed and significant for anxious appearing male with mildly pressured speech. Nontachycardic, mildly hypertensive 143/87, afebrile. Saturating appropriately on room air. Neurologically intact, cardiopulmonary exam within normal limits grossly. Differential includes anxiety, intracranial abnormality, hypertension, hypothyroidism, metabolic versus other endocrinologic abnormality, among others. Because patient well-appearing, extensive reassurance was given. No further workup is deemed necessary today. On independent interpretation review of patient's recent labs from just a couple days prior to this visit, patient has no leukocytosis, coagulation normal. Patient chemistry largely unremarkable. Iron studies normal, LFTs, cardiac workup negative. Vitamin studies negative. TSH and T4 both mildly low, testosterone within normal limits. Thyroid ultrasound with unconcerning nodule, but in the setting of low thyroid studies, deserves workup with ENT and family doctor further. I also recommended patient follow-up with endocrinology to further evaluate these concerns. Because patient only mildly hypertensive here and he thinks the symptoms may be caused by high blood pressure versus elevated blood pressure is causing his symptoms, no antihypertensives will be prescribed here from the emergency department. It was recommended he follow-up with his family doctor for further blood pressure monitoring and management, especially in the setting of hypothyroidism. He voiced his understanding. Because patient well-appearing and recent workup unconcerning, is recommended he follow-up with ENT today, 09/10 and his family doctor for chronic anxiety management. Is explained to patient that many antidepressant/antianxiety medications take 4 to 6 weeks before patient actually starts feeling better and he stated he would be willing to try these. Because patient at baseline without signs or symptoms of clinical decompensation, deemed appropriate for discharge. Results were relayed to patient who voiced understanding and were agreeable to outpatient management and follow up. I discussed my clinical impression with patient and answered all questions. At this time, the evidence for any other entities in the differential is insufficient to warrant any further testing or ED observation. This was explained as well. Advisory was given that persistent or worsening symptoms require further evaluation. I confirmed the understanding of this discussion. Critical Care Critical Care Time Critical Care Time: No
[2023-09-11 09:27] VITALS: BP 143/87; PULSE 78; RESP 18; TEMP 36.3; O2SAT 98
== END 2023-09-11 09:31 | disposition home or self-care (01) ==
PROVIDERS: Emergency Provider Emergency Medicine; PCP Nurse Practitioner Family
DX: R51.9 Headache, unspecified (principal); R53.83 Other fatigue; R42 Dizziness and giddiness; R20.2 Paresthesia of skin; R03.0 Elevated blood-pressure reading, without diagnosis of hypertension
CPT/HCPCS: 99283

== ENCOUNTER 2024-03-02 17:00 | Outpatient (CLI) | payer MEDICAID, SELFPAY | END 2024-03-02 23:59 | disposition home or self-care (01) | LOC: LAB.DROPOF 17:01 | PROVIDERS: PCP Nurse Practitioner Family; Visit Provider Nurse Practitioner Family | DX: T14.8XXA Other injury of unspecified body region, initial encounter (principal) | CPT/HCPCS: 87070; 87077; 87186; 87205 ==

== ENCOUNTER 2024-06-18 13:50 | Outpatient (CLI) | payer MEDICAID, SELFPAY ==
--- NOTE | 2024-06-18 13:53 | US_ITS ---
FINAL REPORT TECHNIQUE: Real-time grayscale and color ultrasound of the thyroid was performed. CLINICAL HISTORY: hyperthyroidism FINDINGS: The thyroid gland demonstrates an asymmetrically enlarged right thyroid lobe measuring 49 mm on the right. The left thyroid lobe measures 47 mm. The isthmus measures 4 mm. The parenchyma is unremarkable . Nodules: No discrete masses identified. IMPRESSION: Asymmetrically enlarged right thyroid lobe. Reviewed, Interpreted and Dictated by Jarek Escoto MD Transcribed by Rand Joiner Authenticated and [facility]
--- NOTE | 2024-06-18 13:53 | US_ITS ---
FINAL REPORT CLINICAL HISTORY: right side lymphdenopathy FINDINGS: Limited sonographic images were obtained of the right side of the neck at the area of palpable abnormality. There is a 1.9 x 0.7 cm ovoid hypoechoic focus favored to represent a lymph node. Two smaller nodes are noted in the lateral neck both measuring less than 1 cm. IMPRESSION: What appears to be a dominant 1.9 cm lymph node corresponding to the palpable abnormality. Recommend follow-up ultrasound to ensure favorable progression. Reviewed, Interpreted and Dictated by Jarek Escoto MD Transcribed by Rand Joiner Authenticated and [facility]
[2024-06-18 16:56] LABS: Free T4 (Free Thyroxine) 0.85 ng/dl (0.78-2.19)
[2024-06-18 17:09] LABS: Thyroid Stimulating Hormone 0.35 uIU/mL (0.465-4.68)
== END 2024-06-18 23:59 | disposition home or self-care (01) ==
PROVIDERS: PCP Nurse Practitioner Family; Visit Provider Nurse Practitioner
DX: E05.90 Thyrotoxicosis, unspecified without thyrotoxic crisis or storm (principal); R59.1 Generalized enlarged lymph nodes
CPT/HCPCS: 36415; 76536; 84439; 84443

== ENCOUNTER 2024-07-01 16:20 | Emergency (ER) | payer MEDICAID, SELFPAY ==
[2024-07-01] VITALS (8 sets, daily range): BP systolic 146–180; BP diastolic 79–103; PULSE 76–110; RESP 16–20; TEMP 36.6–36.8; O2SAT 98–100; BMI 25.7
--- NOTE | 2024-07-01 16:59 | ED_ITS ---
<Statement entered by Shelby Rosa MD - 07/01/24 22:43> I was consulted by the DASIA, and we discussed the complexity of the problems being addressed. I approved the treatment and management plan for this patient's care in the emergency department, thus performing a substantive portion of the medical decision making. Shelby Rosa MD, BELKIS, FACEP Discharge Plan Disposition Patient Disposition: Home, Self-Care Condition: Good Prescriptions Prescriptions: No Action esomeprazole magnesium 40 mg capsule,delayed release(DR/EC) 40 mg PO DAILY Patient Comments: TAKE 1 CAPSULE 1 TIME EACH DAY 30 TO 60 MINUTES BEFORE BREAKFAST. DO NOT OPEN CAPSULE. sertraline 25 mg tablet 25 mg PO DAILY Qty: 30 2RF Referrals Follow up/Referrals: Ellis Cooper, PT [Physical Therapist] - See instructions Activity Restrictions/Add. Instructions Additional Instructions/Restrictions: As we discussed if your symptoms do not improve worsen or change follow-up with your PCP or return to the ER. How much Clinical Impressions Clinical Impression: Dizziness Chest pain Qualifiers: Chest pain type: unspecified Qualified Code(s): R07.9 - Chest pain, unspecified Print Language Print Language: Kiswahili Discharge ED Provider: Shelby Rosa General Adult HPI <ELIE King - Last Filed: 07/01/24 19:37> General Chief complaint: Dizziness Stated complaint: back pain,SOA Time Seen by Provider: 07/01/24 16:44 Mode of Arrival: Family Vehicle Source of Information: Patient Limitations: No Limitations Description of Symptoms (Recalled from ER Triage Doc. by RN): Pt c/o body aches, pain in lungs , dizziness, and light-headed. States he had the flu apptox 1 wk ago. He has been taking his anxiety medications but no tylenol or motrin. History of Present Illness HPI narrative: Patient is a 21-year-old male who presents with the above complaint. He had flu approximately 4 weeks ago however the last 3 to 4 days has had migrating intermittent chest pain and today had dizziness intermittently. He denies any fever headache neurologic symptoms shortness of breath fever chills hemoptysis hematochezia melena nausea vomiting diarrhea. He reports that he has been afebrile. Patient works every day for himself but does not report any relieving or aggravating factors including cold weather. He does smoke a pack of cigarettes a day. He has never been diagnosed with COPD before. Related Data Home Medications ?Medication ?Instructions ?Recorded ?Confirmed esomeprazole magnesium 40 mg 40 mg PO DAILY 09/03/23 06/07/24 capsule,delayed release Previous Rx's ?Medication ?Instructions ?Recorded sertraline 25 mg tablet 25 mg PO DAILY #30 tabs 02/27/24 Allergies Allergy/AdvReac Type Severity Reaction Status Date / Time doxycycline Allergy Severe Blister Verified 06/07/24 14:06 [facility] <ELIE King - Last Filed: 07/01/24 19:37> [facility] Disclaimer: The information contained in this section may have been updated after the patient was seen, as this information can be updated by other users. Medical History (Updated 07/01/24 @ 19:16 by ELIE King) Hyperthyroidism Numbness and tingling of left side of face Impacted cerumen, left ear Dizziness Loss of balance Bilateral tympanic membrane perforation Referred otalgia of left ear Hyperthyroidism Difficulty swallowing No significant family history No active medical problems Surgical History History of colonoscopy History of esophagogastroduodenoscopy (EGD) History of surgery on right wrist History of surgery on left wrist Family History Grandmother Heart attack Grandfather Cancer Social History (Updated 06/07/24 @ 14:08 by CARLOS Angel) Smoking Status: Current every day smoker tobacco type: cigarettes packs per day: 1 second hand exposure: No alcohol intake: former substance use type: denies use current occupational status: employed Travel in the last 8 weeks: None household members: spouse and family housing: house marital status: Have you lived/traveled outside [place] in past 30 days?: No Contact w/someone who lives/traveled outside [place] past 30 days?: No Exposure to someone with infectious disease in past 14 days?: No Do you have a fever (greater than 100.4 F or 38 C)?: No Have you tested positive for COVID-19: No Exposed to someone with COVID-19 in past 14 days?: No Do you have a sore throat?: No Do you have a cough?: No Do you have any weakness?: No Do you have any diarrhea?: No Are you experiencing any unusual bleeding?: No Do you have any muscle aches/pain?: No Do you have any abdominal pain?: No Are you experiencing loss of taste or smell?: No Other Medical History Have you received the Pneumonia Vaccine: No <ELIE King - Last Filed: 07/01/24 19:37> ROS Obtained: Yes Systems reviewed as appropriate & no additional complaints except as documented Physical Exam <ELIE King - Last Filed: 07/01/24 19:37> General General appearance: alert and in no apparent distress Respiratory Respiratory exam: Present wheezes (Left lower lung field only); Absent normal lung sounds bilaterally, respiratory distress or accessory muscle use Cardiovascular Cardiovascular exam: Present regular rate Neurological Exam Neurological exam: Present alert, oriented X3, CN II-XII intact and normal gait; Absent motor sensory deficit Skin Skin exam: Present dry Medical Decision Making <ELIE King - Last Filed: 07/01/24 19:37> Medical Records Medical records reviewed: Yes I reviewed the patient's medical records. Screening: Per USPSTF and CDC recommendations, given the prevalence of disease in our region, it is our hospital?s policy to screen for HIV and viral Hepatitis for all patients aged 18 and over and those with ongoing risk factors. [place] Inquiry Pt receiving controlled substance: No Vital Signs: 07/01/24 16:23 07/01/24 17:15 07/01/24 17:30 Temperature 98.2 F Temperature Source Oral Pulse Rate 97 H 97 H Pulse Rate [Right] 110 H Respiratory Rate 20 Blood Pressure 154/79 H 156/83 H Blood Pressure [Right Arm] 180/103 H Blood Pressure Mean [Right Arm] 128 Blood Pressure Source Blood Pressure Source [Right Arm] Automatic Cuff Blood Pressure Position 02 Sat by Pulse Oximetry 99 98 98 Oxygen Delivery Method Room Air 07/01/24 17:45 07/01/24 18:01 07/01/24 18:15 Temperature Temperature Source Pulse Rate 90 101 H 89 Pulse Rate [Right] Respiratory Rate Blood Pressure 156/96 H 154/87 H 164/80 H Blood Pressure [Right Arm] Blood Pressure Mean [Right Arm] Blood Pressure Source Blood Pressure Source [Right Arm] Blood Pressure Position 02 Sat by Pulse Oximetry 98 100 98 Oxygen Delivery Method 07/01/24 18:30 07/01/24 19:22 Temperature 97.9 F Temperature Source Oral Pulse Rate 76 81 Pulse Rate [Right] Respiratory Rate 16 Blood Pressure 151/85 H 146/86 H Blood Pressure [Right Arm] Blood Pressure Mean [Right Arm] Blood Pressure Source Automatic Cuff Blood Pressure Source [Right Arm] Blood Pressure Position Supine 02 Sat by Pulse Oximetry 100 Oxygen Delivery Method Room Air Lab Data Lab results reviewed: Yes I reviewed the patient's lab results. Lab Results 07/01/24 17:51: WBC 9.6, RBC 4.73, Hgb 15.0, Hct 42.8, MCV 90.5, MCH 31.7 H, MCHC 35.0, RDW 11.8, Plt Count 252, MPV 9.6, Neut % (Auto) 80.6 H, Lymph % (Auto) 12.7, [place] % (Auto) 5.8, Eos % (Auto) 0.2, Baso % (Auto) 0.5, Neut # (Auto) 7.8, Lymph # (Auto) 1.2, [place] # (Auto) 0.6, Eos # (Auto) 0.0, Baso # (Auto) 0.1, PT 11.4, INR 1.02, D-Dimer 0.34, Sodium 138, Potassium 3.9, Chloride 105, Carbon Dioxide 27, Anion Gap 9.9, BUN 19, Creatinine 1.10, Estimated Creat Clear 121, Estimated GFR 79, Est GFR ( Amer) 96, Glucose 93, Calcium 9.2, Magnesium 1.8, Total Bilirubin 1.6 H, AST 37, ALT 35, Alkaline Phosphatase 82, Troponin I < 0.01, NT-Pro-B Natriuret Pep < 20.0, Total Protein 6.8, Albumin 4.4, Globulin 2.4, Albumin/Globulin Ratio 1.8 07/01/24 18:01: VBG pH 7.36, VBG pCO2 39.8, VBG pO2 47.9 H, VBG HCO3 21.9 L, VBG Total CO2 23.2, VBG O2 Saturation 83.5 H, VBG Base Excess -3.5 L, VBG Lactic Acid 1.3 07/01/24 17:51 07/01/24 17:51 Orders (Tests/Meds): ED MEDICATIONS Discontinued Medications Generic Name Dose Route Start Last Admin Trade Name Gallo PRN Reason Stop Dose Admin Acetaminophen 1,000 mg 07/01/24 17:37 07/01/24 17:48 Acetaminophen 1,000mg/100ml Vial IV 07/01/24 17:38 1,000 mg ONCE ONE Administration Albuterol/Ipratropium 3 ml 07/01/24 17:37 07/01/24 17:48 Ipratropium/Albuterol 3 Ml Neb IH 07/01/24 17:38 3 ml ONCE ONE Administration Dexamethasone Sodium Phosphate 10 mg 07/01/24 17:37 07/01/24 17:48 Dexamethasone 4mg/Ml 5ml Mdv IV 07/01/24 17:38 10 mg ONCE ONE Administration Sodium Chloride 1,000 mls @ 999 mls/hr 07/01/24 17:37 07/01/24 17:47 Sod Chlor 0.9% 1000ml Bag IV 07/01/24 18:37 999 mls/hr .Q1H1M ONE Administration Ketorolac Tromethamine 15 mg 07/01/24 17:37 07/01/24 17:48 Ketorolac 30mg/Ml Vial IV 07/01/24 17:38 15 mg ONCE ONE Administration ORDERS Category Date Time Status Chest XR 2 view (NOT portable) [XR chest 2V] Stat Exams 07/01/24 17:37 Completed POCUS Point of Care (ER Only) Stat Exams 07/01/24 17:43 Completed BNP [NT Pro Brain Natriuretic Pep.] Stat Lab 07/01/24 17:51 Completed CBC w/Auto Diff [Complete Blood Count Auto Diff] Stat Lab 07/01/24 17:51 Completed CMP [Comprehensive Metabolic Panel] Stat Lab 07/01/24 17:51 Completed D-Dimer Stat Lab 07/01/24 17:51 Completed INR [Prothrombin Time INR] Stat Lab 07/01/24 17:51 Completed Magnesium Stat Lab 07/01/24 17:51 Completed Trop I [Troponin I] Stat Lab 07/01/24 17:51 Completed VBG [Venous Blood Gas] Stat RT 07/01/24 18:01 Completed Medical Decision Narrative: In summary patient is a 29-year-old male who presents to the emergency department for evaluation of chest pain and dizziness. Patient is initially hypertensive on arrival at 180/103 tachycardic at 110 but breathing 20 times a minute satting at 99% on room air upon arrival, afebrile at 98.2. Physical exam is remarkable only for expiratory wheezes in the left lower lung alvarez mildly but no accessory muscle use. Patient is neurovascularly intact in all 4 extremities. He has no focal neurologic deficits. Cranial nerves II through XII are intact to exam patient has no nuchal rigidity and [place] Coma Score is 15. It sounds are normal. Patient has no provokable dizziness on exam currently.. Differential diagnosis includes vertigo versus COPD versus PE versus post influenza pneumonia versus ACS etc. Initial workup will be conducted with hematologic labs plain film chest x-ray POCUS. Initial interventions include DuoNeb Decadron Toradol acetaminophen. Initial workup reviewed by me shows his hematologic labs are nonactionable with normal white count normal hemoglobin hematocrit and a left shift, normal INR, D-dimer of 0.34, VBG shows a preserved pH of 7.36 pCO2 of 39.8 VBG lactic acid 1.3 and undetectable troponin of 0.01 with the remainder of his hematologic labs being nonactionable including a NT proBNP of less than 20. My informal interpretation of his plain film chest x- ray shows no acute process.. Upon repeat evaluation patient reported improvement after DuoNeb and Decadron. Given this we have essentially ruled out any serious or life-threatening conditions and I had interactive discussion regarding his workup and findings. Patient is appropriate for discharge with strict return precautions and close follow-up with his PCP for continuing or worsening signs or symptoms. <Shelby Rosa MD - Last Filed: 07/01/24 18:16> Vital Signs: 07/01/24 16:23 07/01/24 17:15 07/01/24 17:30 Temperature 98.2 F Temperature Source Oral Pulse Rate 97 H 97 H Pulse Rate [Right] 110 H Respiratory Rate 20 Blood Pressure 154/79 H 156/83 H Blood Pressure [Right Arm] 180/103 H Blood Pressure Mean [Right Arm] 128 Blood Pressure Source Blood Pressure Source [Right Arm] Automatic Cuff Blood Pressure Position 02 Sat by Pulse Oximetry 99 98 98 Oxygen Delivery Method Room Air 07/01/24 17:45 07/01/24 18:01 07/01/24 18:15 Temperature Temperature Source Pulse Rate 90 101 H 89 Pulse Rate [Right] Respiratory Rate Blood Pressure 156/96 H 154/87 H 164/80 H Blood Pressure [Right Arm] Blood Pressure Mean [Right Arm] Blood Pressure Source Blood Pressure Source [Right Arm] Blood Pressure Position 02 Sat by Pulse Oximetry 98 100 98 Oxygen Delivery Method 07/01/24 18:30 07/01/24 19:22 Temperature 97.9 F Temperature Source Oral Pulse Rate 76 81 Pulse Rate [Right] Respiratory Rate 16 Blood Pressure 151/85 H 146/86 H Blood Pressure [Right Arm] Blood Pressure Mean [Right Arm] Blood Pressure Source Automatic Cuff Blood Pressure Source [Right Arm] Blood Pressure Position Supine 02 Sat by Pulse Oximetry 100 Oxygen Delivery Method Room Air Lab Data Lab Results 07/01/24 17:51: WBC 9.6, RBC 4.73, Hgb 15.0, Hct 42.8, MCV 90.5, MCH 31.7 H, MCHC 35.0, RDW 11.8, Plt Count 252, MPV 9.6, Neut % (Auto) 80.6 H, Lymph % (Auto) 12.7, [place] % (Auto) 5.8, Eos % (Auto) 0.2, Baso % (Auto) 0.5, Neut # (Auto) 7.8, Lymph # (Auto) 1.2, [place] # (Auto) 0.6, Eos # (Auto) 0.0, Baso # (Auto) 0.1, PT 11.4, INR 1.02, D-Dimer 0.34, Sodium 138, Potassium 3.9, Chloride 105, Carbon Dioxide 27, Anion Gap 9.9, BUN 19, Creatinine 1.10, Estimated Creat Clear 121, Estimated GFR 79, Est GFR ( Amer) 96, Glucose 93, Calcium 9.2, Magnesium 1.8, Total Bilirubin 1.6 H, AST 37, ALT 35, Alkaline Phosphatase 82, Troponin I < 0.01, NT-Pro-B Natriuret Pep < 20.0, Total Protein 6.8, Albumin 4.4, Globulin 2.4, Albumin/Globulin Ratio 1.8 07/01/24 18:01: VBG pH 7.36, VBG pCO2 39.8, VBG pO2 47.9 H, VBG HCO3 21.9 L, VBG Total CO2 23.2, VBG O2 Saturation 83.5 H, VBG Base Excess -3.5 L, VBG Lactic Acid 1.3 Orders (Tests/Meds): ED MEDICATIONS Discontinued Medications Generic Name Dose Route Start Last Admin Trade Name Gallo PRN Reason Stop Dose Admin Acetaminophen 1,000 mg 07/01/24 17:37 07/01/24 17:48 Acetaminophen 1,000mg/100ml Vial IV 07/01/24 17:38 1,000 mg ONCE ONE Administration Albuterol/Ipratropium 3 ml 07/01/24 17:37 07/01/24 17:48 Ipratropium/Albuterol 3 Ml Neb IH 07/01/24 17:38 3 ml ONCE ONE Administration Dexamethasone Sodium Phosphate 10 mg 07/01/24 17:37 07/01/24 17:48 Dexamethasone 4mg/Ml 5ml Mdv IV 07/01/24 17:38 10 mg ONCE ONE Administration Sodium Chloride 1,000 mls @ 999 mls/hr 07/01/24 17:37 07/01/24 17:47 Sod Chlor 0.9% 1000ml Bag IV 07/01/24 18:37 999 mls/hr .Q1H1M ONE Administration Ketorolac Tromethamine 15 mg 07/01/24 17:37 07/01/24 17:48 Ketorolac 30mg/Ml Vial IV 07/01/24 17:38 15 mg ONCE ONE Administration ORDERS Category Date Time Status Chest XR 2 view (NOT portable) [XR chest 2V] Stat Exams 07/01/24 17:37 Completed POCUS Point of Care (ER Only) Stat Exams 07/01/24 17:43 Completed BNP [NT Pro Brain Natriuretic Pep.] Stat Lab 07/01/24 17:51 Completed CBC w/Auto Diff [Complete Blood Count Auto Diff] Stat Lab 07/01/24 17:51 Completed CMP [Comprehensive Metabolic Panel] Stat Lab 07/01/24 17:51 Completed D-Dimer Stat Lab 07/01/24 17:51 Completed INR [Prothrombin Time INR] Stat Lab 07/01/24 17:51 Completed Magnesium Stat Lab 07/01/24 17:51 Completed Trop I [Troponin I] Stat Lab 07/01/24 17:51 Completed VBG [Venous Blood Gas] Stat RT 07/01/24 18:01 Completed Procedures <Shelby Rosa MD - Last Filed: 07/01/24 18:16> Miscellaneous Procedure Procedure Performed: Limited cardiac ultrasound Indication: Chest pain Identified structures: The heart was visualized in the parasternal long axis, parastenal short axis, apical four chamber and subxyphiod views. The IVC was visualized in the short axis and long axis at its entry into the right atrium. Findings: Normal LVEF no severe right heart strain no pericardial effusion Impression: Unremarkable limited ultrasound of the heart Images were saved to permanent archive The study was technically adequate CPT: 62134-87 This study was performed by me, and I personally interpreted all images/videos. Based on my clinical judgement, these images were added and did not necessitate further imaging. Critical Care <ELIE King - Last Filed: 07/01/24 19:37> Critical Care Time Critical Care Time: No
--- NOTE | 2024-07-01 17:37 | XR_ITS ---
PROCEDURE INFORMATION: Exam: XR Chest Exam date and time: 07/01/2024 5:42 PM Age: 29 years old Clinical indication: Other: Chest pain TECHNIQUE: Imaging protocol: Radiologic exam of the chest. Views: 2 views. COMPARISON: CT CHEST WO/W CON 05/30/2023 2:00 PM FINDINGS: Lungs: No evidence of acute pulmonary disease or infiltrates Pleural spaces: No large effusion or pneumothorax. Heart/Mediastinum: No evidence of mediastinal widening or cardiac silhouette enlargement; the mediastinum and heart appear within normal limits for contour and size. Bones/joints: No evidence of acute osseous abnormalities within the visualized portions of the thoracic spine and ribs. Osseous structures appear appropriate for patient age. IMPRESSION: No dense parenchymal consolidation, pleural effusion, or pneumothorax.
[2024-07-01] MEDS: 0.9 % SODIUM CHLORIDE 1000ML 1,000 ML 999 ML IV (17:47)
[2024-07-01] MEDS: DEXAMETHASONE 4MG/ML 5ML MDV 10 MG IV (17:48)
[2024-07-01] MEDS: KETOROLAC 30MG/ML VIAL 15 MG IV (17:48)
[2024-07-01] MEDS: ACETAMINOPHEN 1,000MG/100ML VIAL 1000 MG IV (17:48)
[2024-07-01] MEDS: IPRATROPIUM/ALBUTEROL 3 ML NEB IH (17:48)
[2024-07-01 18:00] LABS: Basophils # 0.1 K/mm3 (0-0.2); Basophils % 0.5 % (0.1-2.0); Eosinophils % 0.2 % (0.1-12.0); Hematocrit 42.8 % (42.0-52.0); Lymphocytes # 1.2 K/mm3 (0.7-4.5); Lymphocytes % 12.7 % (10-50); Mean Corpuscular Hemoglobin 31.7 pg (27.0-31.2); Mean Corpuscular Volume 90.5 fl (80-94); Mean Platelet Volume 9.6 fl (7.4-10.4); Monocytes # 0.6 K/mm3 (0.1-1.0); Monocytes % 5.8 % (1.7-9.3); Neutrophils # 7.8 K/mm3 (1.8-7.8); Neutrophils % 80.6 % (37.0-80.0); Platelet Count 252 K/mm3 (142-424); Red Blood Count 4.73 M/mm3 (4.60-6.20); Red Cell Distribution Width 11.8 % (11.5-17.5); White Blood Count 9.6 K/mm3 (4.8-10.8)
--- NOTE | 2024-07-01 18:01 | PC.NURSE ---
Called RT to notify pt has a vbg order and blood is in the lab
[2024-07-01 18:07] LABS: Lactate Venous 1.3 mmol/L (0.4-2.0); VBG Base Excess -3.5 mmol/L (-2.4-2.3); VBG HCO3 21.9 mmol/L (23-30); VBG Oxygen Saturation 83.5 % (50-70); VBG PCO2 39.8 mmol/L (35-51); VBG PH 7.36 mmol/L (7.31-7.41); VBG PO2 47.9 mmol/L (28-40); VBG Total CO2 23.2 mmol/L (23-27)
[2024-07-01 18:10] LABS: Albumin Level 4.4 g/dl (3.5-5.0); Chloride 105 mmol/L (98-107); Potassium 3.9 mmoL/L (3.5-5.1); Sodium 138 mmol/L (136-145)
[2024-07-01 18:12] LABS: Anion Gap 9.9 mEq/L (5-15); Blood Urea Nitrogen 19 mg/dl (9-20); Carbon Dioxide 27 mmol/L (22.0-30.0); Creatinine Clearance Estimated 121 mL/min (50-200); Estimated Glomerular Filt Rate 79 ml/min (>60); GFR (African American) 96 ML/MIN (>60)
[2024-07-01 18:13] LABS: Alanine Aminotransferase 35 U/L (12-78); Albumin/Globulin Ratio 1.8 (1.1-1.8); Alkaline Phosphatase 82 U/L (38-126); Aspartate Amino Transferase 37 U/L (17-59); Bilirubin,Total 1.6 mg/dl (0.2-1.3); Calcium 9.2 mg/dl (8.4-10.2); Globulin 2.4 g/dL (1.3-3.2); Glucose 93 mg/dl (74-100); Magnesium 1.8 mg/dl (1.6-2.3); Total Protein,Serum 6.8 g/dl (6.3-8.2)
[2024-07-01 18:17] LABS: INR 1.02 (0.9-1.1); Prothrombin Time 11.4 seconds (10.1-12.5)
[2024-07-01 18:22] LABS: NT Pro Brain Natriuretic Pep. < 20.0 pg/mL (0-125)
[2024-07-01 18:27] LABS: Troponin I < 0.01 ng/ml (0.00-0.034)
[2024-07-01 18:28] LABS: D-Dimer 0.34 ug/mL (0.0-0.5)
--- NOTE | 2024-07-01 19:23 | PC.NURSE ---
IV removed. Catheter tip intact. Bleeding controlled.
== END 2024-07-01 19:24 | disposition home or self-care (01) ==
PROVIDERS: Physician Assistant; Emergency Provider Student in an Organized Health Care Education/Training Program; PCP Nurse Practitioner Family
DX: R07.9 Chest pain, unspecified (principal); R42 Dizziness and giddiness; M79.10 Myalgia, unspecified site
CPT/HCPCS: 71046; 80053; 82803; 83735; 83880; 84484; 85025; 85378; 85610; 96361; 96374; 96375; 99283; J0131; J1100; J1885; J7030; J7620

== ENCOUNTER 2024-08-26 22:08 | Emergency (ER) | payer MEDICAID, SELFPAY ==
[2024-08-26 22:14] VITALS: BP 157/95; PULSE 79; O2SAT 100
--- NOTE | 2024-08-26 22:15 | ECG_ITS ---
APPROVED REPORT Exam: Resting ECG HR:73 bpm ECG Measurements Heart Rate 73 AXES AK 169 P 68 QRSd 89 QRS 60 QT 381 T 28 QTc 406 Conclusion SINUS RHYTHM WITH SINUS ARRHYTHMIA NORMAL ECG UNCONFIRMED REPORT Electronically signed by : HECTOR GOMEZ, 08/27/2024 05:30:16
[2024-08-26 22:19] VITALS: BP 157/95; PULSE 74; RESP 18; TEMP 36.9; O2SAT 100; BMI 27.8
[2024-08-26 22:30] VITALS: BP 143/90; PULSE 64; O2SAT 99
[2024-08-26 22:34] LABS: Basophils # 0.1 K/mm3 (0-0.2); Basophils % 0.8 % (0.1-2.0); Eosinophils # 0.2 K/mm3 (0.0-0.4); Eosinophils % 1.8 % (0.1-12.0); Hematocrit 43.1 % (42.0-52.0); Hemoglobin 14.7 g/dL (14.1-18.0); Lymphocytes # 2.9 K/mm3 (0.7-4.5); Lymphocytes % 31.8 % (10-50); Mean Corpuscular HGB Conc 34.1 g/dL (31.8-35.4); Mean Corpuscular Hemoglobin 31.7 pg (27.0-31.2); Mean Corpuscular Volume 93.1 fl (80-94); Mean Platelet Volume 9.7 fl (7.4-10.4); Monocytes # 0.7 K/mm3 (0.1-1.0); Monocytes % 7.6 % (1.7-9.3); Neutrophils # 5.3 K/mm3 (1.8-7.8); Neutrophils % 57.7 % (37.0-80.0); Platelet Count 250 K/mm3 (142-424); Red Blood Count 4.63 M/mm3 (4.60-6.20); Red Cell Distribution Width 11.8 % (11.5-17.5); White Blood Count 9.1 K/mm3 (4.8-10.8)
[2024-08-26 22:35] LABS: Albumin Level 4.6 g/dl (3.5-5.0); Chloride 106 mmol/L (98-107); Potassium 3.8 mmoL/L (3.5-5.1); Sodium 137 mmol/L (136-145)
--- NOTE | 2024-08-26 22:35 | HMH.EDGENADL ---
Discharge Plan Disposition Patient Disposition: Home, Self-Care Prescriptions Prescriptions: New amoxicillin-pot clavulanate 875-125 mg tablet 1 tab PO BID 7 Days Qty: 14 0RF No Action sertraline 50 mg tablet 50 mg PO DAILY Qty: 90 2RF hydroxyzine pamoate 25 mg capsule 25 mg PO BID PRN (Reason: anxiety) Qty: 90 2RF esomeprazole magnesium 40 mg capsule,delayed release(DR/EC) 40 mg PO DAILY 90 Days Qty: 90 0RF Referrals Follow up/Referrals: Willie Banegas MD [Primary Care Provider] - See instructions Activity Restrictions/Add. Instructions Additional Instructions/Restrictions: Please take antibiotics as prescribed for treatment of possible bacterial sinusitis. Please follow-up with your primary care provider. Please return to the emergency department if you develop any new or worsening symptoms or become concerned for your health. Clinical Impressions Clinical Impression: Sinusitis Qualifiers: Chronicity: acute Recurrence: not specified as recurrent Headache Qualifiers: Headache chronicity pattern: acute headache Print Language Print Language: Cypriot Discharge ED Provider: Santiago Drummond General Adult HPI <Dipesh Goldsmith MD - Last Filed: 08/26/24 23:14> General Chief complaint: Headache Stated complaint: Dizziness,head pressure,HBP Time Seen by Provider: 08/26/24 22:13 Mode of Arrival: Ambulatory Source of Information: Patient Description of Symptoms (Recalled from ER Triage Doc. by RN): Pt to ED with c/o of headache and dizziness that started this morning. pt reports he saw Dr Banegas this morning and his SBP in the office was in the 200's. Pt was prescribed Coreg 12.5 BID. Pt took med @1100 and 1900 today, and reports symptoms have bot imrpoved which prompted him to come to ED. Pt also reports sinus drainage. NIH 0 History of Present Illness HPI narrative: Please note that above description of symptoms, in this electronic medical record under categorization of recalled from ER triage doctor by RN are reflective of an initial nursing assessment, however, is not reflective of my full history and physical exam that was personally taken and clarified. Consequentially, this preceding description of symptoms, which may include the patient's categorized chief complaint in the EMR, do not reflect my personal clinical impression, and the ultimate description of history of present illness and patient stated complaints should be deferred to this section of the note. Unless stated otherwise or congruent with this section of the note, additional signs, symptoms, or incongruence should be interpreted as inaccurate with my clinical impression. Related Data Previous Rx's ?Medication ?Instructions ?Recorded hydroxyzine pamoate 25 mg capsule 25 mg PO BID PRN anxiety #90 caps 07/06/24 sertraline 50 mg tablet 50 mg PO DAILY #90 tabs 07/06/24 esomeprazole magnesium 40 mg 40 mg PO DAILY 90 days #90 caps 08/10/24 capsule,delayed release amoxicillin 875 mg-potassium 1 tab PO BID 7 days #14 tabs 08/26/24 clavulanate 125 mg tablet Allergies Allergy/AdvReac Type Severity Reaction Status Date / Time doxycycline Allergy Severe Blister Verified 07/20/24 13:55 [facility] <Dipesh Goldsmith MD - Last Filed: 08/26/24 23:14> [facility] Disclaimer: The information contained in this section may have been updated after the patient was seen, as this information can be updated by other users. Medical History Hyperthyroidism Numbness and tingling of left side of face Impacted cerumen, left ear Dizziness Loss of balance Bilateral tympanic membrane perforation Referred otalgia of left ear Hyperthyroidism Difficulty swallowing No significant family history No active medical problems Surgical History History of colonoscopy History of esophagogastroduodenoscopy (EGD) History of surgery on right wrist History of surgery on left wrist Family History Grandmother Heart attack Grandfather Cancer Social History Smoking Status: Unknown if ever smoked second hand exposure: No alcohol intake: former substance use type: denies use current occupational status: employed Travel in the last 8 weeks: None household members: spouse and family housing: house marital status: Have you lived/traveled outside US in past 30 days?: No Contact w/someone who lives/traveled outside US past 30 days?: No Exposure to someone with infectious disease in past 14 days?: No Do you have a fever (greater than 100.4 F or 38 C)?: No Have you tested positive for COVID-19: No Exposed to someone with COVID-19 in past 14 days?: No Do you have a sore throat?: No Do you have a cough?: No Do you have any weakness?: No Do you have any diarrhea?: No Are you experiencing any unusual bleeding?: No Do you have any muscle aches/pain?: No Do you have any abdominal pain?: No Are you experiencing loss of taste or smell?: No Other Medical History Have you received the Pneumonia Vaccine: No <Dipesh Goldsmith MD - Last Filed: 08/26/24 23:14> ROS Obtained: Yes All systems reviewed & no additional complaints except as documented Physical Exam <Dipesh Goldsmith MD - Last Filed: 08/26/24 23:14> General General appearance: alert Head Head exam: atraumatic and normocephalic Eye Eye exam: Present normal appearance, PERRL and EOMI Neck Neck exam: Present normal inspection, full ROM and trachea midline Respiratory Respiratory exam: Absent respiratory distress, wheezes, stridor, accessory muscle use or prolonged expiratory phase Cardiovascular Cardiovascular exam: Present other (Pulses equal symmetric in upper and lower extremities) Abdominal Exam Abdominal exam: Present soft; Absent distention, tenderness or pulsatile mass Extremities Exam Extremities exam: Absent edema Neurological Exam Neurological exam: Present alert, oriented X3 and CN II-XII intact; Absent motor sensory deficit Skin Skin exam: Present warm and dry; Absent diaphoresis or erythema Medical Decision Making <Dipesh Goldsmith MD - Last Filed: 08/26/24 23:14> Medical Records Medical records reviewed: Yes I reviewed the patient's medical records. Screening: Per USPSTF and CDC recommendations, given the prevalence of disease in our region, it is our hospital?s policy to screen for HIV and viral Hepatitis for all patients aged 18 and over and those with ongoing risk factors. [place] Inquiry Pt receiving controlled substance: No [place] was queried for this patient: No Vital Signs: 08/26/24 22:14 08/26/24 22:19 08/26/24 22:30 Temperature 98.5 F Temperature Source Oral Pulse Rate 79 64 Pulse Rate [Left Radial] 74 Respiratory Rate 18 Blood Pressure 157/95 H 143/90 H Blood Pressure [Right Arm] 157/95 H Blood Pressure Mean [Right Arm] 115 Blood Pressure Source Blood Pressure Source [Right Arm] Automatic Cuff Blood Pressure Position Blood Pressure Position [Right Arm] Sitting 02 Sat by Pulse Oximetry 100 100 99 Oxygen Delivery Method Room Air Room Air 08/26/24 23:00 08/26/24 23:36 Temperature 98.4 F Temperature Source Oral Pulse Rate 64 61 Pulse Rate [Left Radial] Respiratory Rate 20 Blood Pressure 137/84 135/84 Blood Pressure [Right Arm] Blood Pressure Mean [Right Arm] Blood Pressure Source Automatic Cuff Blood Pressure Source [Right Arm] Blood Pressure Position Sitting Blood Pressure Position [Right Arm] 02 Sat by Pulse Oximetry 98 Oxygen Delivery Method Room Air Lab Data Lab Results 08/26/24 22:20: WBC 9.1, RBC 4.63, Hgb 14.7, Hct 43.1, MCV 93.1, MCH 31.7 H, MCHC 34.1, RDW 11.8, Plt Count 250, MPV 9.7, Neut % (Auto) 57.7, Lymph % (Auto) 31.8, [place] % (Auto) 7.6, Eos % (Auto) 1.8, Baso % (Auto) 0.8, Neut # (Auto) 5.3, Lymph # (Auto) 2.9, [place] # (Auto) 0.7, Eos # (Auto) 0.2, Baso # (Auto) 0.1, Sodium 137, Potassium 3.8, Chloride 106, Carbon Dioxide 28, Anion Gap 6.8, BUN 16, Creatinine 1.00, Estimated Creat Clear 143, Estimated GFR 88, Est GFR ( Amer) 107, Glucose 111 H, Calcium 9.1, Total Bilirubin 0.9, AST 39, ALT 42, Alkaline Phosphatase 86, Total Protein 6.8, Albumin 4.6, Globulin 2.2, Albumin/Globulin Ratio 2.1 H, HCV Ab ROSELYN w/Rflx PCR Qn Negative, HIV Ag/Ab Combo Qual Negative 08/26/24 22:20 08/26/24 22:20 Orders (Tests/Meds): ED MEDICATIONS Discontinued Medications Generic Name Dose Route Start Last Admin Trade Name Freq PRN Reason Stop Dose Admin Acetaminophen 1,000 mg 08/26/24 22:26 08/26/24 22:58 Acetaminophen 500mg Tab PO 08/26/24 22:27 1,000 mg ONCE ONE Administration Azithromycin 500 mg 08/26/24 22:26 08/26/24 22:57 Azithromycin 250mg Tablet PO 08/26/24 22:27 500 mg ONCE ONE Administration Dexamethasone 10 mg 08/26/24 22:26 08/26/24 22:58 Dexamethasone 4mg Tablet PO 08/26/24 22:27 10 mg ONCE ONE Administration Diphenhydramine HCl 50 mg 08/26/24 22:26 08/26/24 22:57 Diphenhydramine 50mg/Ml Vial IV 08/26/24 22:27 50 mg ONCE ONE Administration Lactated Ringer's 1,000 mls @ 999 mls/hr 08/26/24 22:26 08/26/24 22:58 Lactated Ringer's 1000 Ml Bag IV 08/26/24 23:26 999 mls/hr .Q1H1M ONE Administration Magnesium Sulfate 2 gm in 50 mls @ 50 mls/hr 08/26/24 22:26 08/26/24 22:58 Magnesium Sulfate 2gm/50ml Premix IV 08/26/24 23:25 50 mls/hr ONCE ONE Administration Ketorolac Tromethamine 15 mg 08/26/24 22:26 08/26/24 22:56 Ketorolac 30mg/Ml Vial IV 08/26/24 22:27 15 mg ONCE ONE Administration Metoclopramide HCl 10 mg 08/26/24 22:26 08/26/24 22:57 Metoclopramide Hcl 10mg/2ml Vial IVP 08/26/24 22:27 10 mg ONCE ONE Administration ORDERS Category Date Time Status CBC w/Auto Diff [Complete Blood Count Auto Diff] Stat Lab 08/26/24 22:20 Completed CMP [Comprehensive Metabolic Panel] Stat Lab 08/26/24 22:20 Completed HIV Combo Stat Lab 08/26/24 22:20 Completed Hepatitis C Ab Qual. W/ RFX Stat Lab 08/26/24 22:20 Completed Medical Decision Narrative: This is a 29-year-old male presenting with congestion and headache. Has been going on for 3 to 4 days at this point. No fevers or chills, but he is having thick, brown, foul tasting discharge from his nose. Now having frontal headache with a pressure, does not radiate. No fevers or chills, head or neck stiffness, vision changes, facial swelling, or any other concerns. History was obtained via conversation with patient. On arrival, patient hemodynamically stable, alert, oriented x4, appropriate, GCS 15, moving all extremities spontaneously, pupils equal and reactive to light. Full physical exam performed and significant for well-appearing male no acute distress. Neurologically intact. Speaking full sentences. Differential includes viral sinusitis, bacterial sinusitis, tension headache, migraine, among others. Patient was given migraine cocktail as well as azithromycin. Patient was placed in observation beginning at 10:15 PM in order to give meds, reassess and determine need for admission versus home-going. The patient was provided serial exams, monitoring, labs while awaiting results. Independent interpretation of results demonstrated no acute abnormalities of CBC or CHEM. [employer] disclaimer Much of this encounter note is an electronic delivery supervisor spoken language to printed text. Electronic delivery supervisor of the spoken language may permit errors. Although I have reviewed the note, some errors may still exist. <Santiago Drummond MD - Last Filed: 08/26/24 23:40> Vital Signs: 08/26/24 22:14 08/26/24 22:19 08/26/24 22:30 Temperature 98.5 F Temperature Source Oral Pulse Rate 79 64 Pulse Rate [Left Radial] 74 Respiratory Rate 18 Blood Pressure 157/95 H 143/90 H Blood Pressure [Right Arm] 157/95 H Blood Pressure Mean [Right Arm] 115 Blood Pressure Source Blood Pressure Source [Right Arm] Automatic Cuff Blood Pressure Position Blood Pressure Position [Right Arm] Sitting 02 Sat by Pulse Oximetry 100 100 99 Oxygen Delivery Method Room Air Room Air 08/26/24 23:00 08/26/24 23:36 Temperature 98.4 F Temperature Source Oral Pulse Rate 64 61 Pulse Rate [Left Radial] Respiratory Rate 20 Blood Pressure 137/84 135/84 Blood Pressure [Right Arm] Blood Pressure Mean [Right Arm] Blood Pressure Source Automatic Cuff Blood Pressure Source [Right Arm] Blood Pressure Position Sitting Blood Pressure Position [Right Arm] 02 Sat by Pulse Oximetry 98 Oxygen Delivery Method Room Air Lab Data Lab Results 08/26/24 22:20: WBC 9.1, RBC 4.63, Hgb 14.7, Hct 43.1, MCV 93.1, MCH 31.7 H, MCHC 34.1, RDW 11.8, Plt Count 250, MPV 9.7, Neut % (Auto) 57.7, Lymph % (Auto) 31.8, [place] % (Auto) 7.6, Eos % (Auto) 1.8, Baso % (Auto) 0.8, Neut # (Auto) 5.3, Lymph # (Auto) 2.9, [place] # (Auto) 0.7, Eos # (Auto) 0.2, Baso # (Auto) 0.1, Sodium 137, Potassium 3.8, Chloride 106, Carbon Dioxide 28, Anion Gap 6.8, BUN 16, Creatinine 1.00, Estimated Creat Clear 143, Estimated GFR 88, Est GFR ( Amer) 107, Glucose 111 H, Calcium 9.1, Total Bilirubin 0.9, AST 39, ALT 42, Alkaline Phosphatase 86, Total Protein 6.8, Albumin 4.6, Globulin 2.2, Albumin/Globulin Ratio 2.1 H, HCV Ab ROSELYN w/Rflx PCR Qn Negative, HIV Ag/Ab Combo Qual Negative Orders (Tests/Meds): ED MEDICATIONS Discontinued Medications Generic Name Dose Route Start Last Admin Trade Name Freq PRN Reason Stop Dose Admin Acetaminophen 1,000 mg 08/26/24 22:26 08/26/24 22:58 Acetaminophen 500mg Tab PO 08/26/24 22:27 1,000 mg ONCE ONE Administration Azithromycin 500 mg 08/26/24 22:26 08/26/24 22:57 Azithromycin 250mg Tablet PO 08/26/24 22:27 500 mg ONCE ONE Administration Dexamethasone 10 mg 08/26/24 22:26 08/26/24 22:58 Dexamethasone 4mg Tablet PO 08/26/24 22:27 10 mg ONCE ONE Administration Diphenhydramine HCl 50 mg 08/26/24 22:26 08/26/24 22:57 Diphenhydramine 50mg/Ml Vial IV 08/26/24 22:27 50 mg ONCE ONE Administration Lactated Ringer's 1,000 mls @ 999 mls/hr 08/26/24 22:26 08/26/24 22:58 Lactated Ringer's 1000 Ml Bag IV 08/26/24 23:26 999 mls/hr .Q1H1M ONE Administration Magnesium Sulfate 2 gm in 50 mls @ 50 mls/hr 08/26/24 22:26 08/26/24 22:58 Magnesium Sulfate 2gm/50ml Premix IV 08/26/24 23:25 50 mls/hr ONCE ONE Administration Ketorolac Tromethamine 15 mg 08/26/24 22:26 08/26/24 22:56 Ketorolac 30mg/Ml Vial IV 08/26/24 22:27 15 mg ONCE ONE Administration Metoclopramide HCl 10 mg 08/26/24 22:26 08/26/24 22:57 Metoclopramide Hcl 10mg/2ml Vial IVP 08/26/24 22:27 10 mg ONCE ONE Administration ORDERS Category Date Time Status CBC w/Auto Diff [Complete Blood Count Auto Diff] Stat Lab 08/26/24 22:20 Completed CMP [Comprehensive Metabolic Panel] Stat Lab 08/26/24 22:20 Completed HIV Combo Stat Lab 08/26/24 22:20 Completed Hepatitis C Ab Qual. W/ RFX Stat Lab 08/26/24 22:20 Completed Medical Decision Narrative: This is a 29-year-old male presenting with congestion and headache. Has been going on for 3 to 4 days at this point. No fevers or chills, but he is having thick, brown, foul tasting discharge from his nose. Now having frontal headache with a pressure, does not radiate. No fevers or chills, head or neck stiffness, vision changes, facial swelling, or any other concerns. History was obtained via conversation with patient. On arrival, patient hemodynamically stable, alert, oriented x4, appropriate, GCS 15, moving all extremities spontaneously, pupils equal and reactive to light. Full physical exam performed and significant for well-appearing male no acute distress. Neurologically intact. Speaking full sentences. Differential includes viral sinusitis, bacterial sinusitis, tension headache, migraine, among others. Patient was given migraine cocktail as well as azithromycin. Patient was placed in observation beginning at 10:15 PM in order to give meds, reassess and determine need for admission versus home-going. The patient was provided serial exams, monitoring, labs while awaiting results. Independent interpretation of results demonstrated no acute abnormalities of CBC or CHEM. [employer] Hand disclaimer Much of this encounter note is an electronic delivery supervisor spoken language to printed text. Electronic delivery supervisor of the spoken language may permit errors. Although I have reviewed the note, some errors may still exist. Bhanu CHA: I assumed care of the patient at the time of handoff from the prior provider. On reassessment patient reports significant improvement in headache. Given this he was discharged in stable condition with return precautions and prescription for Augmentin for coverage of presumed bacterial sinusitis. Critical Care <Dipesh Goldsmith MD - Last Filed: 08/26/24 23:14> Critical Care Time Critical Care Time: No
[2024-08-26 22:38] LABS: Alanine Aminotransferase 42 U/L (12-78); Albumin/Globulin Ratio 2.1 (1.1-1.8); Alkaline Phosphatase 86 U/L (38-126); Anion Gap 6.8 mEq/L (5-15); Aspartate Amino Transferase 39 U/L (17-59); Bilirubin,Total 0.9 mg/dl (0.2-1.3); Blood Urea Nitrogen 16 mg/dl (9-20); Calcium 9.1 mg/dl (8.4-10.2); Carbon Dioxide 28 mmol/L (22.0-30.0); Creatinine Clearance Estimated 143 mL/min (50-200); Estimated Glomerular Filt Rate 88 ml/min (>60); GFR (African American) 107 ML/MIN (>60); Globulin 2.2 g/dL (1.3-3.2); Glucose 111 mg/dl (74-100); Total Protein,Serum 6.8 g/dl (6.3-8.2)
[2024-08-26] MEDS: KETOROLAC 30MG/ML VIAL 15 MG IV (22:56)
[2024-08-26] MEDS: AZITHROMYCIN 250MG TABLET 500 MG PO (22:57)
[2024-08-26] MEDS: diphenhydrAMINE 50MG/ML VIAL 50 MG IV (22:57)
[2024-08-26] MEDS: METOCLOPRAMIDE HCL 10MG/2ML VIAL 10 MG IVP (22:57)
[2024-08-26] MEDS: ACETAMINOPHEN 500MG TAB 1000 MG PO (22:58)
[2024-08-26] MEDS: MAGNESIUM SULFATE IN WATER 2 GM/50 ML PIGGYBACK IV (22:58)
[2024-08-26] MEDS: LACTATED RINGERS 1000ML 1,000 ML 999 ML IV (22:58)
[2024-08-26] MEDS: DEXAMETHASONE 4MG TABLET 10 MG PO (22:58)
[2024-08-26 23:00] VITALS: BP 137/84; PULSE 64; O2SAT 98
[2024-08-26 23:29] LABS: HIV Combo NEGATIVE (Negative)
[2024-08-26 23:30] VITALS: BP 135/84; PULSE 64; O2SAT 98
[2024-08-26 23:36] VITALS: BP 135/84; PULSE 61; RESP 20; TEMP 36.9; O2SAT 97
[2024-08-26 23:37] LABS: Hepatitis C Ab Qual. W/ RFX NEGATIVE (Negative)
== END 2024-08-26 23:41 | disposition home or self-care (01) ==
PROVIDERS: Emergency Medicine; Emergency Provider Emergency Medicine; PCP Internal Medicine Adolescent Medicine
DX: R51.9 Headache, unspecified (principal)
CPT/HCPCS: 80053; 85025; 86803; 87389; 93005; 96365; 96375; 99284; J1200; J1885; J2765; J3475; J7120; J8540

== ENCOUNTER 2025-01-19 10:01 | Outpatient (CLI) | payer MEDICAID, SELFPAY ==
--- OUTSIDE RECORDS SUMMARY | 2025-01-19 10:04 | XMS_ITS | Encounter Summary ---
Author Organization Healthcare Address [address] [place] [address] Care Team Providers Care Ear Mold Laboratory Technician Name Role Phone Yolie Durán APRN Primary Care Provider [phone] Encounter Details Date Type Department Care Team (Late st Contact Info) Description 05/12/2023 Lab Requisition [facility] [address] [place] [address] Josefina Mccrary MD [address] [place] [address] Diarrhea, unspecified; Heartburn Social History Tobacco Use Types Packs/Day Years Used Date Smoking Tobacco: Every Day Cigarettes 1 11.8 Started: 2013 Smokeless Tobacco: Former Chew Alcohol Use Standard Drinks/Week Comments Yes 1 (1 standard drink = 0.6 oz pur e alcohol) occassional, social Humiliation, Afraid, Rape, and Kick questionnair e Answer Date Recorded Within the last year, have y ou been afraid of your partner or ex-partner? No 04/22/2023 Within the last year, have y ou been humiliated or emotionally abused in other ways by your partner or ex-partner? No Within the last year, have y ou been kicked, hit, slapped, or otherwise physically hurt by your partner or ex-partner? No 04/22/2023 Within the last year, have y ou been raped or forced to have any kind of sexual activity by your partner or ex-partner? No 04/22/2023 PHQ-2 Answer Date Recorded Patient Health Questionnaire-2 Score 2 04/25/2023 Hunger Vital Sign Answer Date Recorded Within the past 12 months, y ou worried that your food would run out before you got the money to buy more. Never true 04/22/20 23 Within the past 12 months, t he food you bought just didn't last and you didn't have money to get more. Never true 04/22/2023 PRAPARE - Transportation Answer Date Re corded In the past 12 months, has l ack of transportation kept you from medical appointments or from getting medications? No 03/25 In the past 12 months, has l ack of transportation kept you from meetings, work, or from getting things needed for daily living? No 04/22/2023 Housing Stability Vital Sign Answer Parish e Recorded In the last 12 months, was t here a time when you were not able to pay the mortgage or rent on time? No 04/22/2023 Number of Places Lived in the Last Year Not on f ile 04/22/2023 In the last 12 months, was t here a time when you did not have a steady place to sleep or slept in a [facility] (including now)? No 04/22/2023 CAGE ASSESSMENT Answer Date Recorded Due to the following: Medical status 04/22/2023 Maximum number of drinks you had on a given occasion in the last month? 0 drinks 04/22/2023 How many alcoholic Beverages do you typically drink in a week? 0 - 7 per week 04/22/2023 Have you ever felt you should CUT down on your d rinking? 0 04/22/2023 Have you been ANNOYED by peo ple criticizing your drinking? 0 04/22/2023 Have you felt GUILTY about your drinking? 0 04/22/2023 Have you had a drink first t xu in the morning (E[employer]) to steady your nerves or to get rid of a hangover? 0 04/22/2023 CAGE Questionnaire Score 0 023 Utilities Answer Date Recorded In the past 12 months has th e electric, gas, oil, or water company threatened to shut off services in your home? No 04/22/2023 PHQ-2A Answer Date Recorded Patient Health Questionnaire-2 Score 2 04/25/2023 Sex and Gender Information Value Date Recorded Sex Assigned at Male 04/17/2023 3:39 AM EDT Legal Sex Male 8:50 PM EDT Gender Identity Male 04/17/2023 3:39 AM EDT Sexual Orientation Not on file documented as of this encounter Plan of Treatment Not on file documented as of this encounter Procedures Procedure Name Priority Date/Time Associated Diagnosis Comments SURGICAL PATHOLOGY EXAM Routine 05/09/2023 Diarrhea, unspecified Heartburn documented in this encounter Results * Surgical Pathology Exam (05/09/2023) Case Report Surgical Pathology Case: [id number] Authorizing Provider: Josefina Mccrary MD Collected: 05/09/2023 Ordering Location: [facility] Lab Received: 05/12/2023 1102 Pathologist: Lashon Lees MD Specimens: A) - Duodenum, duodenal biopsy B) - Gastric, gastric biopsy C) - Esophagus, esophageal biopsy 05/13/2023 1:34 PM [facility] Final Diagnosis A. SMALL INTESTINE, DUODENUM, BIOPSY: - NO PATHOLOGIC ABNORMALITIES. - NO EVIDENCE OF CELIAC DISEASE. B. STOMACH, BIOPSY: - REACTIVE GASTROPATHY AND PREVIOUS EROSION WITH ASSOCIATED MILD CHRONIC INFLAMMATION. - NO H. PYLORI ORGANISMS IDENTIFIED ON H&E SLIDE. C. ESOPHAGUS, BIOPSY: - NO PATHOLOGIC ABNORMALITIES. 05/13/2023 1:34 PM EST [facility] at 1334 EST Clinical Information Diarrhea, unspecified Heartburn Dysphagia Epigastric abdominal pain The examined esophagus was normal. The entire examined stomach was normal. The examined duodenum was normal. 05/13/2023 1:34 PM EST [facility] Gross Description A. DUODENAL BIOPSY The specimen is received in formalin labeled duodenum biopsy . Consist of multiple fragments of haider-brown mucosa, ranging from 0.1-0.4 cm, 1.1 x 0.6 x 0.2 cm in aggregate. The specimen is submitted entirely in cassette A1. B. GASTRIC BIOPSY The specimen is received in formalin labeled gastric biopsy . Consists of three fragments of haider-brown mucosa, measuring 0.1, 0.2 and 0.3 cm. The specimen is submitted entirely in cassette B1. C. ESOPHAGEAL BIOPSY The specimen is received in formalin labeled esophageal biopsies . Consist of multiple fragments of pink-white mucosa, ranging from 0.1-0.3 cm, 0.6 x 0.4 x 0.2 cm in aggregate. The specimen is submitted entirely in cassette C1. 05/13/2023 1:34 PM EST [facility] Note: A resident was involved in the service. I attest I examined the relevant preparations for the specimens and confirmed the diagnosis or interpretation. 05/13/2023 1:34 PM EST [facility] Tissue Esophageal structure / Unknown 05/09/2023 05/12/2023 11:02 AM EST Tissue specimen (specimen) Stomach structure / Unknown 05/09/2023 05/12/2023 11:02 AM EST Tissue specimen (specimen) Esophageal structure / Unknown 05/09/2023 05/12/2023 11:02 AM EST us Josefina Mccrary MD LAB PATHOLOGY ORDERABLES Final Result Performing Organization Address City/State/[facility] de Phone Number [facility] [address] [place] [address] documented in this encounter Visit Diagnoses Diagnosis Diarrhea, unspecified Heartburn documented in this encounter Additional Health Concerns Infection Onset Date Last Indicated Resolved Time Norovirus 04/21/2023 04/21/2023 Assessment Noted Time A fall risk assessment has been complete d for the patient 04/25/2023 8:52 AM EDT A Body Mass Index follow-up plan has been documented for the patient 04/25/2023 11:44 AM EDT documented as of this encounter Care Teams Ear Mold Laboratory Technician Relationship Specialty Start Date End Date Yolie Durán, MATERIAL HANDLING TECHNICIAN [address] [facility] [address] [place] [address] PCP - General 04/12/23 documented as of this encounter
--- OUTSIDE RECORDS SUMMARY | 2025-01-19 10:04 | XMS_ITS | Clinical Summary ---
Author Organization Healthcare Address [address] [place] [address] Care Team Providers Care Puller Through Name Role Phone Yolie Durán APRN Primary Care Provider [phone] Allergies No known active allergies Medications cyclobenzaprine (Flexeril) 10 MG tablet Take 1 tablet (10 mg) by mouth 3 (three) times a day if needed. 04/08/2023 Active FLUoxetine (PROzac) 10 MG capsule Take 1 capsule (10 mg) by mouth 1 (one) time each day in the morning. 04/07/2023 Active ondansetron (Zofran) 4 MG tablet Take 1 tablet (4 mg) by mouth every 8 (eight) hours if needed. 04/14/2023 Active Active Problems Problem Noted Date Diagnosed Date Diarrhea 04/21/2023 Abdominal pain 04/21/2023 Unintended weight loss 04/21/2023 Anxiety 04/21/2023 Palpitations 04/21/2023 Immunizations Immunization Administration Dates Next Due HPV, Quadrivalent 03/06/2011,01/07/2011 Hep A, Adult 10/04/2018 Meningococcal MCV4, Unspecified 01/07/2011 Tdap 01/07/2011 Varicella 01/07/2011 Family History Medical History Relation Name Comments No Known Problems Father No Known Problems Mother Relation Name Status Comments Father Alive Mother Alive Social History Tobacco Use Types Packs/Day Years [...] place to sleep or slept in a assisted (including now)? No 04/22/2023 CAGE ASSESSMENT Answer [...] drink first t xu in the morning (EYE-CANDY WAFFLE ASSEMBLER) to steady your nerves or to get rid of a hangover? 0 04/22/2023 CAGE Questionnaire Score 0 023 Utilities Answer Date Recorded In the past 12 months has th e [employer], gas, oil, or water [employer] threatened to shut off services in your home? No 04/22/2023 PHQ-2A Answer Date Recorded Patient Health Questionnaire-2 Score 2 04/25/2023 Sex and Gender Information Value Date Recorded Sex Assigned at Male 04/17/2023 3:39 AM EDT Legal Sex Male 8:50 PM EDT Gender Identity Male 04/17/2023 3:39 AM EDT Sexual Orientation Not on file Last Filed Vital Signs Vital Sign Reading Time Taken Comments Blood Pressure 144/81 09/15/2023 2:23 PM EDT Pulse 93 09/15/2023 2:23 PM EDT Temperature 36.9 C (98.5 F) 09/15/2023 3:23 PM EDT Respiratory Rate 18 09/11/2023 8:27 PM EDT Oxygen Saturation 100% 09/11/2023 9:34 PM EDT Inhaled Oxygen Concentration - - Weight 75.1 kg (165 lb 9.1 oz) 09/15/2023 2:23 P M EDT Height 182.9 cm (6') 09/15/2023 2:23 PM EDT Body Mass Index 22.45 09/15/2023 2:23 PM EDT Plan of Treatment Health Maintenance Due Date Last Done Comments [facility]-Infant/Child/Adol SDOH Screenings 1995 [facility]-Varicella Vaccines (2 of 2 - 13+ 2-dose series) 02/04/2011 01/07/2011 HPV Vaccines (3 - Male 3-dose series) 07/10/2011 03/06/2011, 01/07/2011 [facility]- SDOH Screenings 2013 [facility]-Adult SDOH Screenings 2013 [facility]-Hepatitis B Vaccines (1 of 3 - 19+ 3-dose series) 2014 [facility]-DTaP,Tdap,and Td Vaccines (2 - Td or Tdap) 01/07/2021 01/07/2011 [id number] Vaccine (3 - season) 2024 11/03/2020, 10/06/2020 [facility]-Depression Screening 04/25/2024 04/25/2023 [facility]-Influenza Vaccine (#1) 2025 [facility]-Zoster Vaccines (1 of 2) 2045 01/07/2011 [facility]-Hepatitis A Vaccines Aged Out 10/04/2018 No longer eligible based on patient's age to complete this topic [facility]-HIV Screening Completed 04/20/2023 [facility]-Hepatitis C Screening Completed 04/20/2023 [facility]-HIB Vaccines Aged Out No longer e ligible based on patient's age to complete this topic [facility]-IPV Vaccines Aged Out No longer e ligible based on patient's age to complete this topic [facility]-Pneumococcal Vaccine: Pediatrics (0 to 5 Years) and At-Risk Patients (6 to 49 Years) Aged Out No longer eligible b ased on patient's age to complete this topic [facility]-Rotavirus Vaccines Aged Out No lo nger eligible based on patient's age to complete this topic Procedures Procedure Name Priority Date/Time Associated Diagnosis Comments HEPATITIS C ANTIBODY - ED W/REFLEX TO HCV QUANT PCR STAT 04/20/2023 1:13 AM EDT ED HIV 1/2 ANTIBODY/ANTIGEN SCREEN WITH REFLEX TO HIV I/II DIFFERENTIATION STAT 04/20/2023 1:13 AM EDT from Last 3 Months or Most Recently Relevant to Health Maintenance Results * ED HIV 1/2 Antibody/Antigen Screen w/Reflex to HIV 1/2 Differentiation (04/20/2023 1:13 AM EDT) HIV 1 & 2 Antibody/Antigen Screen Non Reactive Non Reactive 04/20/2023 2:04 AM EDT [facility] Comment:Screening for HIV 1 & 2 antibodies, and P24 antigen is NONREACTIVE. No confirmatory testing is required. Blood Venous blood specimen / Unknown Venipuncture / Unknown 04/20/2023 1:13 AM EDT 04/20/2023 1:23 AM EDT Curry Justice MD LAB BLOOD ORDERABLES Final Re sult Performing Organization Address City/[facility]/ZIP Co de Phone Number [facility] [address] [place] [address] * Hepatitis C Antibody - ED (04/20/2023 1:13 AM EDT) Hepatitis C Antibody Negative Negative 04/20/2023 2:04 AM EDT [facility] Blood Venous blood specimen / Unknown Venipuncture / Unknown 04/20/2023 1:13 AM EDT 04/20/2023 1:23 AM EDT Curry Justice MD LAB BLOOD ORDERABLES Final Re sult Performing Organization Address City/[facility] Co de Phone Number [facility] [address] [place] [address] from Last 3 Months or Most Recently Relevant to Health Maintenance Additional Health Concerns Infection Onset Date Last Indicated Norovirus 04/21/2023 04/21/2023 Insurance [employer]ICA[employer] [place] Advance Directives * Full Code (Latest Code Status on File) Date Activated Date Inactivated Comments 04/21/2023 4:47 PM 04/22/2023 3:03 PM Question Answer Comments Patient has decision-making capacity? Yes Care Teams Puller Through Relationship Specialty Start Date End Date Yolie Durán APRN [facility] [place] [address] [place] [address] PCP - General 04/12/23
--- OUTSIDE RECORDS SUMMARY | 2025-01-19 10:04 | XMS_ITS | Encounter Summary ---
Author Organization Healthcare Address [address] [place] [address] Care Team Providers Care High Lead Yarder Name Role Phone Yolie Durán APRN Primary Care Provider Encounter Details Date Type Department Care Team (Late st Contact Info) Description 05/09/2023 Outside Procedure [facility] [address] [address] Provider, External Social History Tobacco Use Types Packs/Day Years [...] the money to buy more. Never true 10/31/20 23 Within the past 12 months, t [...] place to sleep or slept in a longterm (including now)? No 04/22/2023 CAGE ASSESSMENT Answer [...] drink first t xu in the morning (EYE-FABRIC AND ACCESSORIES ESTIMATOR) to steady your nerves or to get [...] Procedure Name Priority Date/Time Associated Diagnosis Comments COLONOSCOPY 05/09/2023 2:46 PM EST documented in this encounter Results * Colonoscopy (05/09/2023 2:46 PM EST) Anatomical Region Laterality Modality Endoscopy 05/09/2023 2:19 PM EST Impressions 05/09/2023 2:46 PM EST Please see media tab for the result. Information added by interface. Narrative Procedure Note Josefina Mccrary MD - 05/09/2023 IMPRESSION: Please see media tab for the result. Information added by interface. us External Provider GI PROCEDURE ORDERABLES Final Result documented in this encounter Visit Diagnoses Not on filedocumented in this encounter Additional Health Concerns Infection Onset Date Last Indicated Resolved Time Norovirus 04/21/2023 04/21/2023 Assessment Noted Time A fall risk assessment has been complete d for the patient 04/25/2023 8:52 AM EDT A Body Mass Index follow-up plan has been documented for the patient 04/25/2023 11:44 AM EDT documented as of this encounter Care Teams High Lead Yarder Relationship Specialty Start Date End Date Yolie Durán APRN [facility] [place] [address] [address] [place] [address] PCP - General 04/12/23 documented as of this encounter
--- OUTSIDE RECORDS SUMMARY | 2025-01-19 10:04 | XMS_ITS | Clinical Summary ---
Author Organization [facility] Address [address] [place] [id number] Care Team Providers Care Security Chief Museum Name Role Phone Provider, No Known Primary Care Provider Unavail able Allergies Active Allergy Reactions Criticality Noted Date Comments Doxycycline Monohydrate Other (See Comments) 10/23/2023 Reports hold and cold sensations in his hands and arms w/ Doxycyline. Medications esomeprazole (nexIUM) 40 MG capsule Take 1 capsule by mouth Every Morning Before Breakfast. Active amoxicillin (AMOXIL) 500 MG capsule Take 2 capsules by mouth 2 (Two) Times a Day. LAST DOSE TOMORROW FOR SINUS INFECTION Active atorvastatin (LIPITOR) 40 MG tablet Take 1 tablet by mouth Every Night. 90 tablet 4 Active Active Problems Problem Noted Date Diagnosed Date Left sided numbness 10/23/2023 Tobacco abuse 10/23/2023 Family History Medical History Relation Name Comments No Known Problems Father Hypertension Mother Relation Name Status Comments Father Alive Mother Alive Social History Tobacco Use Types Packs/Day Years Used Date Smoking Tobacco: Every Day Cigarettes Smokeless Tobacco: Never Comments:Smokes ~1ppd Alcohol Use Standard Drinks/Week Comments Not Currently 0 (1 standard drink = 0.6 oz pur e alcohol) AUDIT-C Answer Date Recorded Q1: How often do you have a drink containing alcohol? Never 10/23/2023 Q2: How many drinks containi ng alcohol do you have on a typical day when you are drinking? Patient does not drink Q3: How often do you have si x or more drinks on one occasion? Never 10/23/2023 Abuse Screen Answer Date Recorded Feels Unsafe at Home or Work/School no 10/23/2023 Feels Threatened by Someone no 07/2023 Does Anyone Try to Keep You From Having Contact with Others or Doing Things Outside Your Home? no 10/23/2023 Physical Signs of Abuse Present no 10/23/2023 Housing Stability Answer Date Recorded Current Living Arrangements home 08/2023 Potentially Unsafe Housing Conditions Not on shane e 10/24/2023 Family and Community Support Answer Parish e Recorded Help with Day-to-Day Activities Not on file 10/23/2023 Lonely or Isolated Not on file 10/23/2023 Employment Answer Date Recorded Do you want help finding or keeping work or a constantino b? Not on file 10/23/2023 Disabilities Answer Date Recorded Difficulty Concentrating, Remembering or Making Decisions no 10/23/2023 Difficulty Managing Errands Independently no 10/23/2023 Education Answer Date Recorded Help with school or training? Not on file Preferred Language Bhutanese 10/24/2023 Sex and Gender Information Value Date Recorded Sex Assigned at Not on file Legal Sex Male 3:42 PM EDT Gender Identity Not on file Sexual Orientation Not on file Last Filed Vital Signs Vital Sign Reading Time Taken Comments Blood Pressure 129/71 10/24/2023 3:46 PM EDT Pulse 53 10/24/2023 3:46 PM EDT Temperature 36.9 C (98.4 F) 10/24/2023 3:46 PM EDT Respiratory Rate 18 10/24/2023 3:46 PM EDT Oxygen Saturation 98% 10/24/2023 3:46 PM EDT Inhaled Oxygen Concentration - - Weight 74.8 kg (164 lb 14.5 oz) 10/24/2023 8:55 AM EDT Height 182.9 cm (6' 0.01 ) 10/24/2023 8:55 AM ED T Body Mass Index 22.36 10/24/2023 8:55 AM EDT Plan of Treatment Health Maintenance Due Date Last Done Comments ANNUAL PHYSICAL 1995 HEPATITIS C SCREENING 1995 TDAP/TD VACCINES (2 - Td or Tdap) 01/07/2021 01/07/2011 COVID-19 Vaccine (2023-2 5 season) 2024 11/03/2020, 10/06/2020 INFLUENZA VACCINE 03/23/2025 Pneumococcal Vaccine 0-49 Aged Out No longer eligible based on patient's age to complete this topic Insurance [employer] Advance Directives * CPR (Attempt to Resuscitate) (Latest Code Status on File) Date Activated Date Inactivated Comments 10/23/2023 8:39 PM 10/24/2023 11:33 PM Question Answer Comments Code Status (Patient has no pulse and is not breathing): CPR (Attempt to Resuscitate) Medical Interventions (Patie nt has pulse or is breathing): Full Support Care Teams Security Chief Museum Relationship Specialty Start Date End Date Provider, No Known [facility] [place] [address] PCP - General 10/23/23
--- OUTSIDE RECORDS SUMMARY | 2025-01-19 10:04 | XMS_ITS | Encounter Summary ---
Author Organization Healthcare Address [address] [place] [address] Care Team Providers Care Ventilation Equipment Tender Name Role Phone Yolie Durán APRN Primary Care Provider [phone] Encounter Details Date Type Department Care Team (Late st Contact Info) Description 05/09/2023 Outside Procedure [facility] [address] [address] Provider, External Social History Tobacco [...] place to sleep or slept in a custodial (including now)? No 04/22/2023 CAGE ASSESSMENT Answer [...] drink first t xu in the morning (EYE-THERAPY MANAGER) to steady your nerves or to get [...] Procedure Name Priority Date/Time Associated Diagnosis Comments EGD 05/09/2023 2:51 PM EST documented in this encounter Results * EGD (05/09/2023 2:51 PM EST) Anatomical Region Laterality Modality Endoscopy 05/09/2023 2:09 PM EST Impressions 05/09/2023 2:51 PM EST Please see media tab for [...] documented as of this encounter Care Teams Ventilation Equipment Tender Relationship Specialty Start Date End Date Yolie Durán APRN [facility] [place] [address] [address] [place] [address] PCP - General 04/12/23 documented as of this encounter
[2025-01-19 10:48] LABS: Hematocrit 39.2 % (42.0-52.0); Hemoglobin 14.1 g/dL (14.1-18.0); Immature Granulocytes % 0.6 %; Mean Corpuscular HGB Conc 36.0 g/dL (31.8-35.4); Mean Corpuscular Hemoglobin 32.1 pg (27.0-31.2); Mean Corpuscular Volume 89.3 fl (80-94); Nucleated Red Blood Cells % 0 %; Platelet Count 233 K/mm3 (142-424); Red Blood Count 4.39 M/mm3 (4.60-6.20); Red Cell Distribution Width-SD 37.5 fL; White Blood Count 9.5 K/mm3 (4.8-10.8)
[2025-01-19 11:20] LABS: Albumin Level 3.5 g/dl (3.5-5.0); Chloride 102 mmol/L (98-107); Potassium 3.5 mmoL/L (3.5-5.1); Sodium 134 mmol/L (136-145)
[2025-01-19 11:22] LABS: Alanine Aminotransferase 62 U/L (12-78); Anion Gap 7.5 mEq/L (5-15); Aspartate Amino Transferase 38 U/L (17-59); Blood Urea Nitrogen 14 mg/dl (9-20); Carbon Dioxide 28 mmol/L (22.0-30.0); Creatinine,Serum 0.80 mg/dl (0.66-1.25); Estimated Glomerular Filt Rate 114 ml/min (>60); GFR (African American) 138 ML/MIN (>60)
[2025-01-19 11:23] LABS: Albumin/Globulin Ratio 1.2 (1.1-1.8); Alkaline Phosphatase 85 U/L (38-126); Bilirubin,Total 1.2 mg/dl (0.2-1.3); Calcium 9.2 mg/dl (8.4-10.2); Cholesterol 159 mg/dl (140-200); Globulin 2.9 g/dL (1.3-3.2); Glucose 80 mg/dl (74-100); HDL Cholesterol 37 mg/dl (40-60); Total Protein,Serum 6.4 g/dl (6.3-8.2); Triglycerides 130 mg/dl (30-150)
[2025-01-19 11:44] LABS: 25-OH Vitamin D, Total 39.1 ng/mL (30-100)
[2025-01-19 12:58] LABS: Thyroid Stimulating Hormone 1.85 uIU/mL (0.465-4.68)
[2025-01-19 13:40] LABS: Vitamin B12 818 pg/mL (239-931)
== END 2025-01-19 23:59 | disposition home or self-care (01) ==
LOC: LAB 10:02
PROVIDERS: PCP Internal Medicine Adolescent Medicine; Visit Provider Nurse Practitioner Family
DX: Z00.00 Encounter for general adult medical examination without abnormal findings (principal); R53.83 Other fatigue; E53.8 Deficiency of other specified B group vitamins; E55.9 Vitamin D deficiency, unspecified
CPT/HCPCS: 36415; 80053; 80061; 82306; 82607; 84443; 85025